=== PATIENT | female | born 1945 | race American Indian/Alaskan Native ===

== ENCOUNTER 2020-01-31 05:58 | Day surgery (SDC) | payer MEDICARE, OTHER ==
[2020-01-31] MEDS ORDERED: MIDAZOLAM 2 MG/2 ML INJ IV NR (06:00)
[2020-01-31] MEDS ORDERED: SODIUM CHLORIDE 0.9% 1000 ML 1,000 ML IV SCH (06:00)
[2020-01-31] MEDS ORDERED: propofoL 200 MG/20 ML VIAL IV ONE (07:03)
[2020-01-31] MEDS ORDERED: GLYCOPYRROLATE 0.4 MG/2 ML INJ ONE (07:04)
[2020-01-31] MEDS ORDERED: ROCURONIUM 50 MG/5 ML INJ IV ONE (07:04)
[2020-01-31] MEDS ORDERED: NEOSTIGMINE 10MG/10 ML INJ MDV ONE (07:04)
[2020-01-31] MEDS ORDERED: ONDANSETRON 4 MG/2 ML INJ ONE (07:04)
[2020-01-31] MEDS ORDERED: dexAMETHasone 20 MG/5 ML VIAL ONE (07:04)
[2020-01-31] MEDS ORDERED: LIDOCAINE PF 100 MG/5 ML (CARDIAC SYRINGE) IV ONE (07:04)
[2020-01-31] MEDS ORDERED: SUCCINYLCHOLINE CHLORIDE 200 MG/10 ML INJ MDV ONE (07:04)
[2020-01-31] MEDS ORDERED: PHENYLEPHRINE/NS 1,000 MCG/10 ML SYRINGE (OR USE) IV ONE (07:04)
[2020-01-31] MEDS ORDERED: ePHEDrine SULFATE 50 MG/1 ML INJ ONE (07:05)
[2020-01-31] MEDS ORDERED: fentaNYL 100 MCG/2 ML INJ ONE (07:06)
[2020-01-31] MEDS ORDERED: SODIUM CHLORIDE 0.9% 100 ML ONE (07:13)
[2020-01-31] MEDS ORDERED: PAPAVERINE 60 MG/2 ML INJ SDV ONE (07:16)
[2020-01-31] MEDS ORDERED: PROTAMINE SULFATE 50 MG/5 ML INJ ONE (07:16)
[2020-01-31] MEDS ORDERED: BUPIVACAINE/PF (0.5%) 5 MG/1 ML 10 ML VIAL INFILTRATI ONE ×4 (07:16→09:06)
[2020-01-31] MEDS ORDERED: LIDOCAINE (1%) 10 MG/1 ML VIAL 20 ML MDV ONE (07:16)
[2020-01-31] MEDS ORDERED: SODIUM CHLORIDE 0.9% 250ML 250 ML ONE (07:17)
[2020-01-31] MEDS ORDERED: SODIUM CHLORIDE 0.9% 500 ML 500 ML ONE (07:18)
[2020-01-31 07:31] LABS: Hematocrit 37.1 % (30.3-42.9); Mean Corpuscular HGB Conc 32 % (30-34); Mean Corpuscular Volume 85 fl (79-97); Platelet Count 246 K/mm3 (140-440); Red Blood Count 4.37 M/mm3 (3.65-5.03); Red Cell Distribution Width 15.3 % (13.2-15.2)
--- NOTE | 2020-01-31 07:31 | Anesthesia Consultation ---
Anesthesia Consult and Med Hx Date of service: 01/31/20 - Airway Anesthetic Teeth Evaluation: Good, Bridges ROM Head & Neck: Adequate Mental/Hyoid Distance: Adequate Mallampati Class: Class III Intubation Access Assessment: Possibly Difficult - Cardiac Exam Cardiac Exam: RRR - Pre-Operative Health Status ASA Pre-Surgery Classification: ASA3 Proposed Anesthetic Plan: General - Pulmonary Hx Smoking: No Hx Asthma: No Hx Respiratory Symptoms: No SOB: No COPD: No Home Oxygen Therapy: No Hx Pneumonia: No Hx Sleep Apnea: Yes (DX) - Cardiovascular System Hx Hypertension: Yes Hx Coronary Artery Disease: No Hx Heart Attack/AMI: No Hx Angina: No Hx Percutaneous Transluminal Coronary Angioplasty (PTCA): No Hx Cardia Arrhythmia: No Hx Pacemaker: No Hx Internal Defibrillator: No Hx Valvular Heart Disease: No Hx Heart Murmur: No Hx Peripheral Vascular Disease: No - Central Nervous System Hx Neuromuscular Disorder: No Hx Seizures: No Hx Back Pain: No Hx Psychiatric Problems: Yes - Gastrointestinal Hx Ulcer: No Hx Gastroesophageal Reflux Disease: Yes - Endocrine Hx Renal Disease: Yes Hx End Stage Renal Disease: Yes Hx Cirrhosis: No Hx Liver Disease: No Hx Non-Insulin Dependent Diabetes: Yes Hx Thyroid Disease: No Hx Hypothyroidism: No Hx Hyperthyroidism: No - Hematic Hx Anemia: Yes Hx Sickle Cell Disease: Yes (trait) - Other Systems Hx Alcohol Use: No Hx Substance Use: No Hx Cancer: No Hx Obesity: No
--- NOTE | 2020-01-31 07:32 | Anesthesia Day of Surgery ---
Anesthesia Day of Surgery - Day of Surgery Patient Examined: Yes Patient H&P Reviewed: Yes Patient is NPO: Yes (since 01/30/2020 @[id number]) Beta Blockers: No
[2020-01-31] MEDS ORDERED: HEPARIN 10,000 UNITS/10 ML VIAL ONE (07:43)
[2020-01-31 07:54] LABS: Calcium 9.2 mg/dL (8.4-10.2)
[2020-01-31] MEDS ORDERED: rifAMPin 600 MG VIAL ONE (08:40)
[2020-01-31] MEDS ORDERED: fentaNYL 100 MCG/2 ML INJ IV PRN (08:45)
[2020-01-31] MEDS ORDERED: HEPARIN 10,000 UNITS/10 ML VIAL IV ONE (09:04)
[2020-01-31] MEDS ORDERED: SODIUM CHLORIDE 0.9% IRR 1,500 ML BOTTLE IR ONE (09:07)
[2020-01-31] MEDS ORDERED: rifAMPin 600 MG VIAL IV ONE (09:08)
[2020-01-31] MEDS ORDERED: SODIUM CHLORIDE 0.9% 500 ML IVPB IV ONE (09:08)
[2020-01-31] MEDS ORDERED: SODIUM CHLORIDE 0.9% 250 ML IVPB IV ONE (09:09)
[2020-01-31] MEDS ORDERED: BUPIVACAINE/PF (0.5%) 5 MG/1 ML 30 ML VIAL INFILTRATI ONE ×2 (09:23→09:37)
--- NOTE | 2020-01-31 09:51 | Operative Report ---
Operative Report Operative Report: Date of procedure: 01/31/2020 Pre-operative diagnosis: Chronic Renal Insufficiency Stage V Post-operative diagnosis: Same Procedure(s): 1. Creation of Left Brachial Artery to Axillary Vein AV Graft with 6 mm Bovine Graft Artergraft Surgeon: Arturo Jasso MD Leveling Machine Operator: None Anesthesia: General Endotracheal Anesthesia EBL: Minimal Counts: Correct Complications: None Condition: Stable Findings: Successful Creation of Left Arm AV Graft with Palpable Thrill and Palpable Radial Pulse at the Completion of the Case. Specimen: None Indication: The patient is a 74-year-old female with a history of chronic renal insufficiency that has not yet on hemodialysis however it is anticipated that she will require within the next several months. She had a vein mapping that demonstrated she is not a candidate for creation of arteriovenous fistula. She is right-hand dominant and requires creation of long-term access in her left arm so she was given the risk, benefits, and alternative procedures of a a creation of an arteriovenous graft and consented to the procedure. Description of Procedure: The patient was brought to the operating room and laid in supine position. After a timeout was performed general endotracheal anesthesia was achieved and the patient's left arm was then prepped and draped in normal sterile fashion. A longitudinal incision was made on the medial aspect of the arm just proximal to the antecubital crease and carried down to the brachial artery using sharp dissection. The brachial artery was dissected out circumferentially both proximally and distally and controlled with vessel loops. A second incision was created in longitudinal fashion on the medial aspect of the arm just distal to the axillary crease and carried down to the axillary vein using sharp dissection. Axillary vein was dissected out circumferentially and controlled with a vessel loop. I then used a Ana-Wick tunneler to tunnel from the brachial artery incision to the axillary vein incision and then put an 6 mm bovine through the tunnel. I infused with heparinized saline to ensure that it was not twisted or kinked. I put the brachial artery vessel loops on tension controlling the flow and then created an arteriotomy using an 11 blade and Mcpherson scissors. I beveled the graft and created an end-to-side anastomosis using 6-0 Prolene running fashion. I clamped the graft just proximal to the anastomosis and then released the vessel loops restoring flow in the brachial artery. I pl aced quick clot in incision to achieve hemostasis. I cut the proximal end of the graft to the appropriate length and beveled the graft in preparation for a venous anastomosis. I controlled the axillary vein a Satinsky clamp and created a venotomy using an 11 blade and Mcpherson scissors. I created an end to side anastomosis using a 6-0 Prolene in running fashion. Prior to completing the anastomosis I flushed the graft to ensure there was no thrombus and then completed the anastamosis. I released all clamps allowing flow into the AV graft which had an excellent thrill. I packed the wound with quick clot to achieve hemostasis. I anesthetized both wounds with 0.5% Marcaine and then closed both wounds in 2 layers using 3-0 Vicryl in running fashion in the deep dermal layer and 4-0 Monocryl in running fashion the subcuticular layer. I dressed both wounds with Dermabond. The patient tolerated the procedure well all sponge, needle, and instrument counts were correct. The patient was taken to recovery in stable condition.
--- NOTE | 2020-01-31 09:54 | Short Stay Summary ---
Short Stay Documentation Date of service: 01/31/20 Narrative H&P: See H&P - History H&P: obtained from office - Allergies and Medications Current Medications: Allergies Penicillins Allergy (Verified 10/11/13 08:06) Hives Home Medications Medication Instructions Recorded Confirmed Last Taken Type Amlodipine Besylate 5 mg PO DAILY 10/11/13 10/11/13 10/10/13 18:00 History 5 mg Benazepril HCl 40 mg PO DAILY 10/11/13 10/11/13 10/10/13 09:00 History 40 mg Rosuvastatin Calcium [Crestor] 10 mg PO QHS 10/11/13 10/11/13 10/10/13 22:00 History 10 mg glipiZIDE [Glipizide] 5 mg PO DAILY 10/11/13 10/11/13 10/10/13 18:00 History 5 mg Cholecalciferol Vit D3 1 cap PO DAILY 01/25/20 01/25/20 Unknown History Sodium Zirconium Cyclosilicate 1 pack PO DAILY 01/25/20 01/25/20 Unknown History [Lokelma] Active Medications Fentanyl (Sublimaze) 50 mcg IV Q5MIN PRN PRN Reason: Pain , Severe (7-10) Stop: 01/31/20 23:00 Clindamycin HCl (Cleocin 900 Mg/50 Ml) 900 mg in 50 mls @ 100 mls/hr IV PREOP NR; Protocol Stop: 01/31/20 18:00 Sodium Chloride (Nacl 0.9% 1000 Ml) 1,000 mls @ 42 mls/hr IV DIRECT RUSSELL Stop: 01/31/20 23:59 Midazolam HCl (Versed) 2 mg IV PREOP NR Stop: 01/31/20 23:59 - Brief post op/procedure progress note Date of procedure: 01/31/20 Pre-op diagnosis: Chronic Renal Insufficiency Stage V Post-op diagnosis: same Procedure: Creation of Left Brachial Artery to Left Axillary Vein Arteriovenous Graft With 6 mm Bovine Artegraft Anesthesia: PRINCESS Surgeon: PHUONG ORTA Estimated blood loss: minimal Pathology: none Condition: stable - Disposition Condition at discharge: Good Short Stay Discharge Plan Activity: other (No heavy lifting with left arm for 2 weeks.) Wound: open to air, keep clean and dry, other (Okay to wash the wound with soap and water but do not soak in water for 2 weeks.) Follow up with: PHUONG ORTA MD [Staff Physician] - 14 Days Prescriptions: HYDROcodone/APAP 7.5-325 [[place]ummer 7.5/325] 1 each PO Q6HR PRN #30 tablet PRN Reason: Pain
[2020-01-31] MEDS ORDERED: SUGAMMADEX SODIUM 200 MG/2 ML VIAL IV ONE (10:10)
[2020-01-31 10:50] VITALS: BP 137/62
--- NOTE | 2020-01-31 13:17 | Post Anesthesia Evaluation ---
- Post Anesthesia Evaluation Patient Participated: Yes Airway Patent: Yes Stable Respiratory Function: Yes Nausea/Vomiting: No Temp > 96.8F: Yes Pain Manageable: Yes Adequeate Hydration: Yes Anesthesia Complications: No
== END 2020-01-31 11:40 | disposition home or self-care (01) ==
LOC: OR 05:58
PROVIDERS: ATTEND Surgery Vascular Surgery
DX: I12.0 Hypertensive chronic kidney disease with stage 5 chronic kidney disease or end stage renal disease (principal); E11.22 Type 2 diabetes mellitus with diabetic chronic kidney disease; N18.6 End stage renal disease; E78.00 Pure hypercholesterolemia, unspecified; G47.30 Sleep apnea, unspecified; K21.9 Gastro-esophageal reflux disease without esophagitis; M19.90 Unspecified osteoarthritis, unspecified site; F41.9 Anxiety disorder, unspecified; Z88.0 Allergy status to penicillin; Z98.41 Cataract extraction status, right eye; Z98.42 Cataract extraction status, left eye; Z98.51 Tubal ligation status; Z98.890 Other specified postprocedural states; Z79.899 Other long term (current) drug therapy; Z86.2 Personal history of diseases of the blood and blood-forming organs and certain disorders involving the immune mechanism
CPT/HCPCS: 36415; 36830; 80048; 82962; 85027; C1768; J0330; J1100; J1644; J2001; J2250; J2370; J2405; J2704; J2710; J3010; J3490; J7030; J7040; J7050; J2440; J2720

== ENCOUNTER 2020-02-16 14:08 | Inpatient (IN) | payer MEDICARE ==
[2020-02-16 17:05] LABS: Basophils # (Auto) 0.1 K/mm3 (0.0-0.1); Basophils % (Auto) 0.8 % (0.0-1.8); Eosinophils # (Auto) 0.3 K/mm3 (0.0-0.4); Eosinophils % (Auto) 4.9 % (0.0-4.3); Hematocrit 35.1 % (30.3-42.9); Hemoglobin 11.8 gm/dl (10.1-14.3); Lymphocytes # (Auto) 1.2 K/mm3 (1.2-5.4); Lymphocytes % (Auto) 17.7 % (13.4-35.0); Mean Corpuscular HGB Conc 34 % (30-34); Mean Corpuscular Volume 85 fl (79-97); Monocytes # (Auto) 0.7 K/mm3 (0.0-0.8); Monocytes % (Auto) 10.3 % (0.0-7.3); Platelet Count 249 K/mm3 (140-440); Red Blood Count 4.15 M/mm3 (3.65-5.03)
[2020-02-16 17:30] LABS: Alanine Aminotransferase 22 units/L (7-56); BUN/Creatinine Ratio 17; Blood Urea Nitrogen 78 mg/dL (7-17); Calcium 9.3 mg/dL (8.4-10.2); Hemolysis Index 6
[2020-02-16 18:43] LABS: Bilirubin,Urine NEG (Negative); Blood,Urine NEG (Negative); Color,Urine Yellow (Yellow); Mucus,Urine FEW /HPF; Protein,Urine <15 mg/dL mg/dL (Negative); Urobilinogen,Urine < 2.0 mg/dL (<2.0)
--- NOTE | 2020-02-16 18:46 | Emergency Department Report ---
- General Chief complaint: Medical Clearance Stated complaint: [facility] Time Seen by Provider: 02/16/20 18:21 Source: patient Mode of arrival: Wheelchair Limitations: No Limitations - History of Present Illness Initial comments: 74-year-old female the past medical history of chronic renal insufficiency with recent AV fistula placement January 30, diabetes, GERD, sickle cell trait, and arthritis presents to the hospital with complaints of "needing emergent dialysis". Patient saw her vascular surgeon Dr. Jasso today and expressed that she was feeling weak and had not urinated since yesterday a.m. He then sent her to the ER for emergent dialysis. Patient did urinate after arrival to the ED and was able to provide a urine sample. She complains of dyspnea on exertion, fatigue, chest pressure while lying supine, and worsening bilateral ankle edema. As per note provided by Dr. Jasso her AV access may be cannulated starting February 19 or . Fuel Tank Sealer And Tester: Dr. Ahumada Severity scale (0 -10): 0 - Related Data Home Medications Medication Instructions Recorded Confirmed Last Taken Benazepril HCl [Lotensin] 40 mg PO DAILY 02/16/20 02/16/20 Unknown Febuxostat [Uloric] 40 mg PO DAILY 02/16/20 02/16/20 Unknown Furosemide [Lasix TAB] 40 mg PO QDAY PRN 02/16/20 02/16/20 Unknown Rosuvastatin Calcium [Crestor] 10 mg PO DAILY 02/16/20 02/16/20 Unknown Sodium Zirconium Cyclosilicate 5 gm PO DAILY 02/16/20 02/16/20 Unknown [Lokelma] amLODIPine [Norvasc] 5 mg PO DAILY 02/16/20 02/16/20 Unknown glipiZIDE [Glucotrol] 5 mg PO QDAY 02/16/20 02/16/20 Unknown Allergies Allergy/AdvReac Type Severity Reaction Status Date / Time Penicillins Allergy Hives Verified 02/16/20 15:31 ED Review of Systems ROS: Stated complaint: [facility] Other details as noted in HPI Comment: All other systems reviewed and negative ED Past Medical Hx - Past Medical History Hx Hypertension: Yes Hx Heart Attack/AMI: No Hx Congestive Heart Failure: No Hx Diabetes: Yes Hx GERD: Yes Hx Liver Disease: No Hx Renal Disease: Yes Hx Sickle Cell Disease: Yes (trait) Hx Arthritis: Yes (JOINTS) Hx Headaches / Migraines: No Hx Seizures: No Hx Kidney Stones: No Hx Asthma: No Hx COPD: No Hx Tuberculosis: No Hx HIV: No - Surgical History Hx Pacemaker: No Hx Internal Defibrillator: No - Social History Smoking Status: Never Smoker - Medications Home Medications: Home Medications Medication Instructions Recorded Confirmed Last Taken Type Benazepril HCl [Lotensin] 40 mg PO DAILY 02/16/20 02/16/20 Unknown History Febuxostat [Uloric] 40 mg PO DAILY 02/16/20 02/16/20 Unknown History Furosemide [Lasix TAB] 40 mg PO QDAY PRN 02/16/20 02/16/20 Unknown History Rosuvastatin Calcium [Crestor] 10 mg PO DAILY 02/16/20 02/16/20 Unknown History Sodium Zirconium Cyclosilicate 5 gm PO DAILY 02/16/20 02/16/20 Unknown History [Lokelma] amLODIPine [Norvasc] 5 mg PO DAILY 02/16/20 02/16/20 Unknown History glipiZIDE [Glucotrol] 5 mg PO QDAY 02/16/20 02/16/20 Unknown History ED Physical Exam - General Limitations: No Limitations - Other Other exam information: General: No acute distress Head: Atraumatic Eyes: normal appearance ENT: Moist mucous membranes Neck: Normal appearance, no midline tenderness Chest: Clear to auscultation bilaterally. CV: Regular rate and rhythm. Left upper arm AV graft with palpable thrill Abdomen: Soft, normal bowel sounds, nontender, nondistended, no rebound or guarding Back: Normal inspection Extremity: full range of motion, mild ankle Neuro: Alert O x 3, no facial asymmetry, speech clear, no gross motor sensory deficit. Patient did use a wheelchair to come to her ED room due to generalized weakness Psych: Appropriate behavior Skin: No rash ED Course Vital Signs 02/16/20 02/16/20 02/16/20 15:34 18:41 18:42 Temperature 98.2 F Pulse Rate 77 67 Respiratory 16 14 20 Rate Blood Pressure Blood Pressure 137/58 [Left] O2 Sat by Pulse 98 99 99 Oximetry 02/16/20 02/16/20 02/16/20 18:45 18:46 19:00 Temperature Pulse Rate 67 68 65 Respiratory 20 17 12 Rate Blood Pressure 136/47 119/49 Blood Pressure 124/49 [Left] O2 Sat by Pulse 99 98 98 Oximetry - Reevaluation(s) Reevaluation #1: 02/16/20 20:00 I spoke to patient's per her request and explained plan for admission, temporary dialysis access placement, and initiation of dialysis - Consultations Consultation #1: 02/16/20 19:[address] Ahumada recommends admission for dialysis which can be done tomorrow. Patient will need vascular consult in a.m. for dialysis access placement since her recently placed AV fistula is not matured enough to be accessed. Recommends n.p.o. after midnight in hepatitis panel 02/16/20 19:[address] Varner in inform patient when he access in the morning for dialysis tomorrow ED Medical Decision Making - Lab Data Result diagrams: 02/16/20 16:51 02/16/20 16:51 Lab Results 02/16/20 02/16/20 02/16/20 Range/Units 16:51 16:51 18:27 WBC 7.0 (4.5-11.0) K/mm3 RBC 4.15 (3.65-5.03) M/mm3 Hgb 11.8 (10.1-14.3) gm/dl Hct 35.1 (30.3-42.9) % MCV 85 (79-97) fl MCH 28 (28-32) pg MCHC 34 (30-34) % RDW 15.0 (13.2-15.2) % Plt Count 249 (140-440) K/mm3 Lymph % (Auto) 17.7 (13.4-35.0) % [place] % (Auto) 10.3 H (0.0-7.3) % Eos % (Auto) 4.9 H (0.0-4.3) % Baso % (Auto) 0.8 (0.0-1.8) % Lymph # (Auto) 1.2 (1.2-5.4) K/mm3 [place] # (Auto) 0.7 (0.0-0.8) K/mm3 Eos # (Auto) 0.3 (0.0-0.4) K/mm3 Baso # (Auto) 0.1 (0.0-0.1) K/mm3 Seg Neutrophils % 66.3 (40.0-70.0) % Seg Neutrophils # 4.6 (1.8-7.7) K/mm3 Sodium 141 (137-145) mmol/L Potassium 4.6 (3.6-5.0) mmol/L Chloride 106.7 (98-107) mmol/L Carbon Dioxide 20 L (22-30) mmol/L Anion Gap 19 mmol/L BUN 78 H (7-17) mg/dL Creatinine 4.5 H (0.6-1.2) mg/dL Estimated GFR 12 ml/min BUN/Creatinine Ratio 17 % Glucose 95 (65-100) mg/dL Calcium 9.3 (8.4-10.2) mg/dL Total Bilirubin 0.60 (0.1-1.2) mg/dL AST 19 (5-40) units/L ALT 22 (7-56) units/L Alkaline Phosphatase 85 (35-129) units/L Troponin T < 0.010 (0.00-0.029) ng/mL Total Protein 7.0 (6.3-8.2) g/dL Albumin 4.0 (3.9-5) g/dL Albumin/Globulin Ratio 1.3 % Urine Color Yellow (Yellow) Urine Turbidity Clear (Clear) Urine pH 5.0 (5.0-7.0) Ur Specific [place] 1.011 (1.003-1.030) Urine Protein <15 mg/dl (Negative) mg/dL Urine Glucose (UA) Neg (Negative) mg/dL Urine Ketones Neg (Negative) mg/dL Urine Blood Neg (Negative) Urine Nitrite Neg (Negative) Urine Bilirubin Neg (Negative) Urine Urobilinogen < 2.0 (<2.0) mg/dL Ur Leukocyte Esterase Tr (Negative) Urine WBC (Auto) 2.0 (0.0-6.0) /HPF Urine RBC (Auto) 5.0 (0.0-6.0) /HPF U Epithel Cells (Auto) 2.0 (0-13.0) /HPF Urine Mucus Few /HPF - EKG Data -: EKG Interpreted by [place] EKG shows normal: sinus rhythm, ST-T waves (No STEMI) Rate: normal - Radiology Data Radiology results: report reviewed CXR: NAF - Medical Decision Making 74-year-old female presents to the hospital worsening generalized weakness and decreased urine output. Patient has worsening GFR is has renal failure compared to January 30 labs. Unfortunately her AV fistula is not mature enough to be used for dialysis. Case discussed with vascular surgeon who will place temporary dialysis access in a.m. and Dr. Ingram will arrange for dialysis during admission. Patient does not require emergent dialysis tonight since potassium is normal and no signs of pulmonary edema or hypoxia. Hospitalist to admit Critical Care Time: No Critical care attestation.: If time is entered above; I have spent that time in minutes in the direct care of this critically ill patient, excluding procedure time. ED Disposition Clinical Impression: ESRD needing dialysis, Generalized weakness Disposition: OP ADMIT IP TO THIS HOSP Is pt being admited?: Yes Condition: Stable Time of Disposition: 20:01 (Dr Hou/hosp)
--- NOTE | 2020-02-16 19:05 | XRay Report ---
CHEST 1 VIEW INDICATION: sob, weakness. COMPARISON: None. FINDINGS: Support devices: None. Heart: Normal. Lungs/Pleura: No acute pulmonary or pleural findings. IMPRESSION: 1. No acute findings. Signer Name: Neo Maddox MD Signed: 02/16/2020 7:01 PM Workstation Name: [id number]
--- NOTE | 2020-02-16 20:03 | History and Physical Report ---
History of Present Illness Chief complaint: I just feel weak History of present illness: 74 YO Female with HTN, DM, GERD, OA, ESRD pending first dialysis session, HLD, SCD Trait presents to ED for evaluation. Patient states that she has experienced weakness over the past 3 days with persistent symptoms over the same timeframe. Patient was seen and evaluated by her primary care physician and was instructed to seek further care. Patient was transported to [facility] via private vehicle for further care and evaluation. Patient seen and evaluated in the emergency department. Lab and imaging studies reviewed. Patient found to have end-stage renal disease in need of dialysis. Nephrology team consulted in ED. Vascular surgery team consulted in ED for placement of dialysis catheter. Patient placed in observation status and admitted to medical floor due to increased risk of worsening symptoms. Patient denies fever, chills, chest pain, palpitation, productive cough, skin rash, recent ill contacts, or known exposure to COVID-19. No prior admission for review. All medication listed at time of admission has been reconciled. Advanced care planning conducted in ED. Past History Past Medical History: arthritis, diabetes, ESRD, GERD, hypertension, hyperlipidemia, other (See HPI) Past Surgical History: Other (AV fistula placement) Social history: . denies: smoking, alcohol abuse, prescription drug abuse Family history: hypertension Medications and Allergies Allergies Allergy/AdvReac Type Severity Reaction Status Date / Time Penicillins Allergy Hives Verified 02/16/20 15:31 Home Medications Medication Instructions Recorded Confirmed Last Taken Type Benazepril HCl [Lotensin] 40 mg PO DAILY 02/16/20 02/16/20 Unknown History Cholecalciferol (Vitamin D3) 25 mcg PO DAILY 02/16/20 02/16/20 Unknown History [Vitamin D3] Colchicine 0.6 mg PO DAILY 02/16/20 02/16/20 Unknown History Febuxostat [Uloric] 40 mg PO DAILY 02/16/20 02/16/20 Unknown History Rosuvastatin Calcium [Crestor] 10 mg PO DAILY 02/16/20 02/16/20 Unknown History amLODIPine [Norvasc] 5 mg PO DAILY 02/16/20 02/16/20 Unknown History glipiZIDE [Glucotrol] 2.5 mg PO BID 02/16/20 02/16/20 Unknown History Review of Systems Constitutional: weakness, no weight gain, no fever, no chills Ears, nose, mouth and throat: no ear pain, no ear discharge, no tinnitis, no nose pain, no nasal congestion, no nasal discharge Breasts: no change in shape, no swelling, no mass Cardiovascular: no chest pain, no orthopnea, no palpitations, no edema, no syncope, no shortness of breath Respiratory: no cough, no hemoptysis Gastrointestinal: no abdominal pain, no nausea, no diarrhea, no change in bowel habits, no hematemesis Genitourinary Female: no pelvic pain, no flank pain, no dysuria, no urinary frequency, no urgency Rectal: no pain, no incontinence, no bleeding Musculoskeletal: no neck stiffness, no neck pain, no shooting arm pain, no arm numbness/tingling, no low back pain Integumentary: no rash, no pruritis, no sores, no wounds, no boils Neurological: no head injury, no paralysis, no weakness, no numbness, no syncope, no ataxia Psychiatric: no anxiety, no change in sleep habits, no sleep disturbances Endocrine: no cold intolerance, no excessive thirst, no polyuria, no flushing, no weight change Hematologic/Lymphatic: no easy bruising, no lymphedema Allergic/Immunologic: no allergic rhinitis, no persistent infections, no anaphylaxis Exam - Constitutional Vitals: Temp Pulse Resp BP Pulse Ox 98.2 F 65 12 119/49 98 02/16/20 15:34 02/16/20 19:00 02/16/20 19:00 02/16/20 19:00 02/16/20 19:00 General appearance: Present: mild distress - EENT Eyes: Present: PERRL ENT: hearing intact, clear oral mucosa - Neck Neck: Present: supple, normal ROM - Respiratory Respiratory effort: normal Respiratory: bilateral: CTA - Cardiovascular Heart Sounds: Present: S1 & S2. Absent: rub, click - Extremities Extremities: pulses symmetrical, No edema Peripheral Pulses: within normal limits - Abdominal General gastrointestinal: Present: soft, non-tender, non-distended, normal bowel sounds Female genitourinary: Present: normal - Integumentary Integumentary: Present: clear, warm, dry - Musculoskeletal Musculoskeletal: generalized weakness - Psychiatric Psychiatric: appropriate mood/affect, intact judgment & insight - Neurologic Neurologic: CNII-XII intact, moves all extremities HEART Score - HEART Score Troponin: Troponin T < 0.010 ng/mL (0.00-0.029) 02/16/20 16:51 Results - Labs CBC & Chem 7: 02/16/20 16:51 02/16/20 20:13 Labs: Abnormal lab results 02/16/20 02/16/20 Range/Units 16:51 16:51 [place] % (Auto) 10.3 H (0.0-7.3) % Eos % (Auto) 4.9 H (0.0-4.3) % Carbon Dioxide 20 L (22-30) mmol/L BUN 78 H (7-17) mg/dL Creatinine 4.5 H (0.6-1.2) mg/dL Assessment and Plan - Patient Problems (1) ESRD needing dialysis Current Visit: Yes Status: Acute Plan to address problem: Nephrology team consulted in ED, strict I's/O, avoid nephrotoxic agents, dialysis as per renal team, vascular surgery team consulted for dialysis catheter placement. (2) Hypertension Current Visit: Yes Status: Acute Qualifiers: Hypertension type: essential hypertension Qualified Code(s): I10 - Essential (primary) hypertension Plan to address problem: Monitor blood pressure every shift, continue medical management. (3) Diabetes Current Visit: Yes Status: Acute Plan to address problem: Consistent carbohydrate diet, sliding scale insulin, Accu-Chek, hypoglycemia protocol. (4) GERD (gastroesophageal reflux disease) Current Visit: Yes Status: Acute Qualifiers: Esophagitis presence: without esophagitis Qualified Code(s): K21.9 - Gastro-esophageal reflux disease without esophagitis Plan to address problem: PPI therapy, supportive care (5) Osteoarthritis Current Visit: Yes Status: Acute Qualifiers: Laterality: bilateral Plan to address problem: Pain control, supportive care. (6) DVT prophylaxis Current Visit: Yes Status: Acute Plan to address problem: SCD to bilateral lower extremities while in bed, patient is ambulatory. (7) Advance care planning Current Visit: Yes Status: Acute Plan to address problem: Disease education conducted, patient is full code, care plan discussed, prognosis discussed, patient knowledges understanding and agreement with care plan, +30 minutes.
[2020-02-16] MEDS ORDERED: ONDANSETRON 4 MG/2 ML INJ IV PRN (20:04)
[2020-02-16] MEDS ORDERED: ALBUTEROL 2.5 MG/3 ML NEBU IH PRN (20:04)
[2020-02-16] MEDS ORDERED: FUROSEMIDE 40 MG TAB PO PRN (20:06)
[2020-02-16 20:28] LABS: Calcium 9.5 mg/dL (8.4-10.2)
[2020-02-16 20:30] LABS: Hepatitis B Surface Antigen Non-Reactive (Negative); Hepatitis C Virus Antibody Non-Reactive (NonReactive)
[2020-02-17] MEDS ORDERED: SODIUM CHLORIDE 0.9% 100 ML IV PRN (08:49)
--- NOTE | 2020-02-17 09:15 | Event Note ---
Date: 02/17/20 Patient was seen and evaluated in my office yesterday. Her incisions are well healed and the graft has a palpable thrill. She was cleared to have the graft accessed yesterday.
[2020-02-17] MEDS ORDERED: SODIUM ZIRCONIUM CYCLOSILICATE PO SCH (10:00)
[2020-02-17] MEDS ORDERED: FEBUXOSTAT 40 MG PO SCH (10:00)
--- NOTE | 2020-02-17 11:55 | Progress Note ---
Assessment and Plan - Patient Problems (1) ESRD needing dialysis Current Visit: Yes Status: Acute Plan to address problem: Nephrology team consulted in ED, strict I's/O, avoid nephrotoxic agents, dialysis as per renal team, vascular surgery team consulted for dialysis catheter placement. (2) Hypertension Current Visit: Yes Status: Chronic Qualifiers: Hypertension type: essential hypertension Qualified Code(s): I10 - Essent ial (primary) hypertension Plan to address problem: Monitor blood pressure every shift, continue medical management. (3) Diabetes Current Visit: Yes Status: Chronic Plan to address problem: Consistent carbohydrate diet, sliding scale insulin, Accu-Chek, hypoglycemia protocol. (4) GERD (gastroesophageal reflux disease) Current Visit: Yes Status: Acute Qualifiers: Esophagitis presence: without esophagitis Qualified Code(s): K21.9 - Gastro-esophageal reflux disease without esophagitis Plan to address problem: PPI therapy, supportive care (5) Osteoarthritis Current Visit: Yes Status: Acute Qualifiers: Laterality: bilateral Plan to address problem: Pain control, supportive care. (6) DVT prophylaxis Current Visit: Yes Status: Acute Plan to address problem: SCD to bilateral lower extremities while in bed, patient is ambulatory. (7) Advance care planning Current Visit: Yes Status: Acute Plan to address problem: Disease education conducted, patient is full code, care plan discussed, prognosis discussed, patient knowledges understanding and agreement with care plan, +30 minutes. History Interval history: 74 YO Female HD #2 with ESRD pending initial dialysis session, HTN, DM, GERD, OA, will likely require serial dialysis sessions. Patient resting comfortably in bed. Patient knowledges continuing to feel weak. No reported nursing events. Patient denies pain. Hospitalist Physical - Constitutional Vitals: Temp Pulse Resp BP Pulse Ox 98.2 F 63 16 129/54 99 02/17/20 04:20 02/17/20 04:20 02/17/20 04:20 02/17/20 04:20 02/17/20 04:20 General appearance: Present: mild distress - EENT Eyes: Present: PERRL, EOM intact ENT: hearing intact - Neck Neck: Present: normal ROM - Respiratory Respiratory: bilateral: CTA - Cardiovascular Rhythm: regular Heart Sounds: Present: S1 & S2 - Extremities Extremities: no ischemia Peripheral Pulses: within normal limits - Abdominal General gastrointestinal: soft, non-tender, non-distended - Integumentary Integumentary: Present: clear, dry - Psychiatric Psychiatric: cooperative - Neurologic Neurologic: CNII-XII intact HEART Score - HEART Score Troponin: Troponin T < 0.010 ng/mL (0.00-0.029) 02/16/20 16:51 Results - Labs CBC & Chem 7: 02/16/20 16:51 02/16/20 20:13 Labs: Laboratory Last Values WBC 7.0 K/mm3 (4.5-11.0) 02/16/20 16:51 RBC 4.15 M/mm3 (3.65-5.03) 02/16/20 16:51 Hgb 11.8 gm/dl (10.1-14.3) 02/16/20 16:51 Hct 35.1 % (30.3-42.9) 02/16/20 16:51 MCV 85 fl (79-97) 02/16/20 16:51 MCH 28 pg (28-32) 02/16/20 16:51 MCHC 34 % (30-34) 02/16/20 16:51 RDW 15.0 % (13.2-15.2) 02/16/20 16:51 Plt Count 249 K/mm3 (140-440) 02/16/20 16:51 Lymph % (Auto) 17.7 % (13.4-35.0) 02/16/20 16:51 [place] % (Auto) 10.3 % (0.0-7.3) H 02/16/20 16:51 Eos % (Auto) 4.9 % (0.0-4.3) H 02/16/20 16:51 Baso % (Auto) 0.8 % (0.0-1.8) 02/16/20 16:51 Lymph # (Auto) 1.2 K/mm3 (1.2-5.4) 02/16/20 16:51 [place] # (Auto) 0.7 K/mm3 (0.0-0.8) 02/16/20 16:51 Eos # (Auto) 0.3 K/mm3 (0.0-0.4) 02/16/20 16:51 Baso # (Auto) 0.1 K/mm3 (0.0-0.1) 02/16/20 16:51 Seg Neutrophils % 66.3 % (40.0-70.0) 02/16/20 16:51 Seg Neutrophils # 4.6 K/mm3 (1.8-7.7) 02/16/20 16:51 Sodium 143 mmol/L (137-145) 02/16/20 20:13 Potassium 4.9 mmol/L (3.6-5.0) 02/16/20 20:13 Chloride 106.0 mmol/L (98-107) 02/16/20 20:13 Carbon Dioxide 23 mmol/L (22-30) 02/16/20 20:13 Anion Gap 19 mmol/L 02/16/20 20:13 BUN 79 mg/dL (7-17) H 02/16/20 20:13 Creatinine 4.5 mg/dL (0.6-1.2) H 02/16/20 20:13 Estimated GFR 12 ml/min 02/16/20 20:13 BUN/Creatinine Ratio 18 % 02/16/20 20:13 Glucose 94 mg/dL (65-100) 02/16/20 20:13 POC Glucose 90 mg/dL (70-105) 02/17/20 08:04 Calcium 9.5 mg/dL (8.4-10.2) 02/16/20 20:13 Total Bilirubin 0.60 mg/dL (0.1-1.2) 02/16/20 16:51 AST 19 units/L (5-40) 02/16/20 16:51 ALT 22 units/L (7-56) 02/16/20 16:51 Alkaline Phosphatase 85 units/L (35-129) 02/16/20 16:51 Troponin T < 0.010 ng/mL (0.00-0.029) 02/16/20 16:51 Total Protein 7.0 g/dL (6.3-8.2) 02/16/20 16:51 Albumin 4.0 g/dL (3.9-5) 02/16/20 16:51 Albumin/Globulin Ratio 1.3 % 02/16/20 16:51 Urine Color Yellow (Yellow) 02/16/20 18:27 Urine Turbidity Clear (Clear) 02/16/20 18:27 Urine pH 5.0 (5.0-7.0) 02/16/20 18:27 Ur Specific [place] 1.011 (1.003-1.030) 02/16/20 18: Urine Protein <15 mg/dl mg/dL (Negative) 02/16/20 18: Urine Glucose (UA) Neg mg/dL (Negative) 02/16/20 18: Urine Ketones Neg mg/dL (Negative) 02/16/20 18: Urine Blood Neg (Negative) 02/16/20 18: Urine Nitrite Neg (Negative) 02/16/20 18: Urine Bilirubin Neg (Negative) 02/16/20 18: Urine Urobilinogen < 2.0 mg/dL (<2.0) 02/16/20 18: Ur Leukocyte Esterase Tr (Negative) 02/16/20 18: Urine WBC (Auto) 2.0 /HPF (0.0-6.0) 02/16/20 18: Urine RBC (Auto) 5.0 /HPF (0.0-6.0) 02/16/20 18: U Epithel Cells (Auto) 2.0 /HPF (0-13.0) 02/16/20 18: Urine Mucus Few /HPF 02/16/20 18:27 Hepatitis A IgM Ab Non-reactive (NonReactive) 02/16/20 19:45 Hep Bs Antigen Non-reactive (Negative) 02/16/20 19:45 Hep B Core IgM Ab Non-reactive (NonReactive) 02/16/20 19:45 Hepatitis C Antibody Non-reactive (NonReactive) 02/16/20 19:45 Childress/IV: Voiding Method Toilet IV Catheter Type [Right Hand] Peripheral IV Active Medications - Current Medications Current Medications: Generic Name Dose Route Start Last Admin Trade Name Freq PRN Reason Stop Dose Admin Acetaminophen 650 mg 02/16/20 20:04 Acetaminophen 325 Mg Tab PO Q4H PRN Pain MILD(1-3)/Fever >100.5/LESLIE Albuterol 2.5 mg 02/16/20 20:04 Albuterol 2.5 Mg/3 Ml Nebu IH Q4HRT PRN Shortness Of Breath Amlodipine Besylate 5 mg 02/17/20 10:00 Amlodipine 5 Mg Tab PO DAILY RUSSELL Atorvastatin Calcium 20 mg 02/16/20 22:00 02/16/20 22:15 Atorvastatin 20 Mg Tab PO 20 mg QHS RUSSELL Administration Furosemide 40 mg 12/10/20 20:06 Furosemide 40 Mg Tab PO QDAY PRN Edema Sodium Chloride 100 mls @ 999 mls/hr 02/17/20 08:49 Nacl 0.9% IV DERRELL PRN Hypotension Lisinopril 40 mg 02/17/20 10:00 Lisinopril 40 Mg Tab PO DAILY RUSSELL Miscellaneous Medication 40 mg 02/17/20 10:00 Febuxostat [Uloric] PO DAILY [facility] Miscellaneous Medication 5 gm 02/17/20 10:00 Sodium Zirconium Cyclosilicate [Lokelma] PO DAILY RUSSELL Ondansetron HCl 4 mg 02/16/20 20:04 Ondansetron 4 Mg/2 Ml Inj IV Q8H PRN Nausea And Vomiting Sodium Chloride 10 ml 02/16/20 22:00 02/16/20 22:15 Sodium Chloride 0.9% 10 Ml Flush Syringe IV 10 ml BID RUSSELL Administration Sodium Chloride 10 ml 02/16/20 20:04 Sodium Chloride 0.9% 10 Ml Flush Syringe IV PRN PRN LINE FLUSH
--- NOTE | 2020-02-17 12:13 | Consultation ---
History of Present Illness - Reason for Consult chronic renal failure - History of Present Illness very pleasant 74-year-old -[place] female, who is well known to our outpatient facility as she is seen by my colleague , for management of chronic kidney disease stage IV in the setting of diabetes and hypertension. Patient has had progressively worsening renal failure and secondary to concerns for possible uremic symptoms such as weakness and fatigue, she was advised to come to the emergency room department and to initiate hemodialysis. She had a new AV graft placed by vascular surgery. There is a note this morning from vascular surgery clearing us to cannulate the graft today for her first dialysis session. Past History Past Medical History: arthritis, diabetes, ESRD, GERD, hypertension, hyperlipidemia, other (See HPI) Past Surgical History: Other (AV fistula placement) Social history: . denies: smoking, alcohol abuse, prescription drug abuse Family history: hypertension Medications and Allergies Allergies Allergy/AdvReac Type Severity Reaction Status Date / Time Penicillins Allergy Hives Verified 02/16/20 15:31 Home Medications Medication Instructions Recorded Confirmed Last Taken Type Benazepril HCl [Lotensin] 40 mg PO DAILY 02/16/20 02/16/20 Unknown History Cholecalciferol (Vitamin D3) 25 mcg PO DAILY 02/16/20 02/16/20 Unknown History [Vitamin D3] Colchicine 0.6 mg PO DAILY 02/16/20 02/16/20 Unknown History Febuxostat [Uloric] 40 mg PO DAILY 02/16/20 02/16/20 Unknown History Rosuvastatin Calcium [Crestor] 10 mg PO DAILY 02/16/20 02/16/20 Unknown History amLODIPine [Norvasc] 5 mg PO DAILY 02/16/20 02/16/20 Unknown History glipiZIDE [Glucotrol] 2.5 mg PO BID 02/16/20 02/16/20 Unknown History Active Meds: Active Medications Acetaminophen (Acetaminophen 325 Mg Tab) 650 mg PO Q4H PRN PRN Reason: Pain MILD(1-3)/Fever >100.5/LESLIE Albuterol (Albuterol 2.5 Mg/3 Ml Nebu) 2.5 mg IH Q4HRT PRN PRN Reason: Shortness Of Breath Amlodipine Besylate (Amlodipine 5 Mg Tab) 5 mg PO DAILY RUSSELL Atorvastatin Calcium (Atorvastatin 20 Mg Tab) 20 mg PO QHS RUSSELL Last Admin: 02/16/20 22:15 Dose: 20 mg Documented by: Furosemide (Furosemide 40 Mg Tab) 40 mg PO QDAY PRN PRN Reason: Edema Sodium Chloride (Nacl 0.9%) 100 mls @ 999 mls/hr IV DERRELL PRN PRN Reason: Hypotension Lisinopril (Lisinopril 40 Mg Tab) 40 mg PO DAILY RUSSELL Miscellaneous Medication (Febuxostat [Uloric]) 40 mg PO DAILY [facility] Miscellaneous Medication (Sodium Zirconium Cyclosilicate [Lokelma]) 5 gm PO DAILY [facility] Ondansetron HCl (Ondansetron 4 Mg/2 Ml Inj) 4 mg IV Q8H PRN PRN Reason: Nausea And Vomiting Sodium Chloride (Sodium Chloride 0.9% 10 Ml Flush Syringe) 10 ml IV BID [facility] Last Admin: 02/16/20 22:15 Dose: 10 ml Documented by: Sodium Chloride (Sodium Chloride 0.9% 10 Ml Flush Syringe) 10 ml IV PRN PRN PRN Reason: LINE FLUSH Review of Systems All systems: negative Constitutional: fatigue, weakness Exam - Vital Signs Vital signs: Vital Signs Temp Pulse Resp BP Pulse Ox 98.2 F 77 16 137/58 98 02/16/20 15:34 02/16/20 15:34 02/16/20 15:34 02/16/20 15:34 02/16/20 15:34 - General Appearance General appearance: well-developed, well-nourished, appears stated age EENT: ATNC, PERRL Neck: Present: neck supple, trachea midline Respiratory: Clear to Ascultation Heart: regular, S1S2 Gastrointestinal: Present: normal Integumentary: no rash Neurologic: no focal deficit, no asterixis Musculoskeletal: Present: deferred Psychiatric: cooperative Results - Lab Results 02/16/20 16:51 02/16/20 20:13 Most recent lab results Calcium 9.5 mg/dL (8.4-10.2) 02/16/20 20:13 Assessment and Plan - Patient Problems (1) CKD (chronic kidney disease) stage V requiring chronic dialysis Current Visit: Yes Status: Chronic Plan to address problem: given her progressive renal failure along with concerns of uremia, will initiate patient on hemodialysis inpatient at this time. Ears have been placed for 2 consecutive dialysis treatments. I was notified by the nursing staff and there is also a note in the chart indicating that per vascular recommendations we can cannulate the graft today. I have adjusted the blood flow rightto 250 ml/min and to ensure that we use 17-gauge needles when cannulating. (2) Generalized weakness Current Visit: Yes Status: Chronic Plan to address problem: likely as a consequence of uremia. As such we will initiate hemodialysis today. Case management to help with outpatient placement. Patient is being worked up for placement at [facility]. (3) Hypertension Current Visit: Yes Status: Chronic Qualifiers: Hypertension type: essential hypertension Qualified Code(s): I10 - Essential (primary) hypertension Plan to address problem: monitor blood pressure on the current regimen. (4) Diabetes Current Visit: Yes Status: Chronic Plan to address problem: diabetes management per primary attending.
[2020-02-17] MEDS: LISINOPRIL 40 MG TAB PO SCH (17:33)
[2020-02-17] MEDS: amLODIPine 5 MG TAB PO SCH (17:34)
[2020-02-17] MEDS: ACETAMINOPHEN 325 MG TAB PO PRN (22:46)
[2020-02-17] MEDS ORDERED: ALPRAZolam 0.25 MG TAB PO ONE (23:15)
[2020-02-18] MEDS: LISINOPRIL 40 MG TAB PO SCH (09:56)
--- NOTE | 2020-02-18 10:38 | Progress Note ---
Assessment and Plan - Patient Problems (1) ESRD needing dialysis Current Visit: Yes Status: Acute Plan to address problem: given her progressive renal failure along with concerns of uremia, patient was initiated on hemodialysis inpatient at this time. second HD arranged for today. use 17-gauge needles when cannulating. (2) Generalized weakness Current Visit: Yes Status: Chronic Plan to address problem: likely 2/2 uremia, pt initiated on HD. Case management to help with outpatient placement. Patient is being worked up for placement at [facility]. (3) Hypertension Current Visit: Yes Status: Chronic Qualifiers: Hypertension type: essential hypertension Qualified Code(s): I10 - Essential (primary) hypertension Plan to address problem: monitor blood pressure on the current regimen. (4) Diabetes Current Visit: Yes Status: Chronic Qualifiers: Chronic kidney disease stage: on chronic dialysis Plan to address problem: diabetes management per primary attending. Subjective Date of service: 02/18/20 Principal diagnosis: ESRD Interval history: pt awake, alert, in no acute distress, tolerated HD well yesterday. Second HD scheduled today. Objective - Vital Signs Vital signs: Vital Signs - 12hr 02/18/20 02/18/20 02/18/20 03:48 07:59 09:56 Temperature 97.9 F Pulse Rate 65 Respiratory 16 Rate Blood Pressure 122/54 126/56 O2 Sat by Pulse 100 92 Oximetry - General Appearance General appearance: well-developed, well-nourished, appears stated age EENT: ATNC, PERRL, mucous membranes moist Neck: no JVD Respiratory: Present: Clear to Ascultation Cardiology: regular, S1S2 Gastrointestinal: normoactive bowel sounds Integumentary: no rash Neurologic: no focal deficit, alert and oriented x3, strength 5/5, CN 3-12 intact Psychiatric: mood/affect appropriate, cooperative - Lab 02/16/20 16:51 02/16/20 20:13 Most recent lab results Calcium 9.5 mg/dL (8.4-10.2) 02/16/20 20:13 Medications & Allergies - Medications Allergies/Adverse Reactions: Allergies Penicillins Allergy (Verified 02/16/20 15:31) Hives Home Medications: Home Medications Medication Instructions Recorded Confirmed Last Taken Type Benazepril HCl [Lotensin] 40 mg PO DAILY 02/16/20 02/16/20 Unknown History Cholecalciferol (Vitamin D3) 25 mcg PO DAILY 02/16/20 02/16/20 Unknown History [Vitamin D3] Colchicine 0.6 mg PO DAILY 02/16/20 02/16/20 Unknown History Febuxostat [Uloric] 40 mg PO DAILY 02/16/20 02/16/20 Unknown History Rosuvastatin Calcium [Crestor] 10 mg PO DAILY 02/16/20 02/16/20 Unknown History amLODIPine [Norvasc] 5 mg PO DAILY 02/16/20 02/16/20 Unknown History glipiZIDE [Glucotrol] 2.5 mg PO BID 02/16/20 02/16/20 Unknown History Active Medications: Generic Name Dose Route Start Last Admin Trade Name Freq PRN Reason Stop Dose Admin Acetaminophen 650 mg 02/16/20 20:04 Acetaminophen 325 Mg Tab PO Q4H PRN Pain MILD(1-3)/Fever >100.5/LESLIE Albuterol 2.5 mg 02/16/20 20:04 Albuterol 2.5 Mg/3 Ml Nebu IH Q4HRT PRN Shortness Of Breath Amlodipine Besylate 5 mg 02/17/20 10:00 02/17/20 17:34 Amlodipine 5 Mg Tab PO 5 mg DAILY RUSSELL Administration Atorvastatin Calcium 20 mg 02/16/20 22:00 02/17/20 22:47 Atorvastatin 20 Mg Tab PO 20 mg QHS RUSSELL Administration Furosemide 40 mg 02/16/20 20:06 Furosemide 40 Mg Tab PO QDAY PRN Edema Sodium Chloride 100 mls @ 999 mls/hr 02/17/20 08:49 Nacl 0.9% IV DERRELL PRN Hypotension Lisinopril 40 mg 02/17/20 10:00 02/18/20 09:56 Lisinopril 40 Mg Tab PO 40 mg DAILY RUSSELL Administration Miscellaneous Medication 40 mg 02/17/20 10:00 Febuxostat [Uloric] PO DAILY RUSSELL Miscellaneous Medication 5 gm 02/17/20 10:00 Sodium Zirconium Cyclosilicate [Lokelma] PO DAILY RUSSELL Ondansetron HCl 4 mg 02/16/20 20:04 Ondansetron 4 Mg/2 Ml Inj IV Q8H PRN Nausea And Vomiting Sodium Chloride 10 ml 02/16/20 22:00 02/18/20 09:57 Sodium Chloride 0.9% 10 Ml Flush Syringe IV 10 ml BID RUSSELL Administration Sodium Chloride 10 ml 02/16/20 20:04 Sodium Chloride 0.9% 10 Ml Flush Syringe IV PRN PRN LINE FLUSH
--- NOTE | 2020-02-18 20:28 | Progress Note ---
Assessment and Plan - Patient Problems (1) ESRD needing dialysis Current Visit: Yes Status: Acute Plan to address problem: Nephrology team consulted in ED, strict I's/O, avoid nephrotoxic agents, dialysis as per renal team, vascular surgery team consulted for dialysis catheter placement. (2) Hypertension Current Visit: Yes Status: Chronic Qualifiers: Hypertension type: essential hypertension Qualified Code(s): I10 - Essent ial (primary) hypertension Plan to address problem: Monitor blood pressure every shift, continue medical management. (3) Diabetes Current Visit: Yes Status: Chronic Qualifiers: Chronic kidney disease stage: on chronic dialysis Plan to address problem: Consistent carbohydrate diet, sliding scale insulin, Accu-Chek, hypoglycemia protocol. (4) GERD (gastroesophageal reflux disease) Current Visit: Yes Status: Acute Qualifiers: Esophagitis presence: without esophagitis Qualified Code(s): K21.9 - Gastro-esophageal reflux disease without esophagitis Plan to address problem: PPI therapy, supportive care (5) Osteoarthritis Current Visit: Yes Status: Acute Qualifiers: Laterality: bilateral Plan to address problem: Pain control, supportive care. (6) DVT prophylaxis Current Visit: Yes Status: Acute Plan to address problem: SCD to bilateral lower extremities while in bed, patient is ambulatory. (7) Advance care planning Current Visit: Yes Status: Acute Plan to address problem: Disease education conducted, patient is full code, care plan discussed, prognosis discussed, patient knowledges understanding and agreement with care plan, +30 minutes. History Interval history: 74 YO Female HD #3 with ESRD requiring serial dialysis, HTN, DM, GERD, OA, will likely require serial dialysis sessions. Patient resting comfortably in bed. Patient acknowledges continuing to feel weak. No reported nursing events. Patient denies pain. Case management consulted for discharge planning and assistance with outpatient dialysis. Hospitalist Physical - Constitutional Vitals: Temp Pulse Resp BP Pulse Ox 98.0 F 64 18 128/64 100 02/18/20 17:30 02/18/20 17:30 02/18/20 17:30 02/18/20 17:30 02/18/20 11:03 General appearance: Present: mild distress - EENT Eyes: Present: PERRL, EOM intact ENT: hearing decreased - Neck Neck: Present: supple - Respiratory Respiratory: bilateral: CTA - Cardiovascular Rhythm: regular Heart Sounds: Present: S1 & S2 - Extremities Extremities: no ischemia Peripheral Pulses: within normal limits - Abdominal General gastrointestinal: soft, non-tender, non-distended - Integumentary Integumentary: Present: clear, dry - Psychiatric Psychiatric: cooperative - Neurologic Neurologic: CNII-XII intact HEART Score - HEART Score Troponin: Troponin T < 0.010 ng/mL (0.00-0.029) 02/16/20 16:51 Results - Labs CBC & Chem 7: 02/16/20 16:51 02/16/20 20:13 Labs: Laboratory Last Values WBC 7.0 K/mm3 (4.5-11.0) 02/16/20 16:51 RBC 4.15 M/mm3 (3.65-5.03) 02/16/20 16:51 Hgb 11.8 gm/dl (10.1-14.3) 02/16/20 16:51 Hct 35.1 % (30.3-42.9) 02/16/20 16:51 MCV 85 fl (79-97) 02/16/20 16:51 MCH 28 pg (28-32) 02/16/20 16:51 MCHC 34 % (30-34) 02/16/20 16:51 RDW 15.0 % (13.2-15.2) 02/16/20 16:51 Plt Count 249 K/mm3 (140-440) 02/16/20 16:51 Lymph % (Auto) 17.7 % (13.4-35.0) 02/16/20 16:51 [place] % (Auto) 10.3 % (0.0-7.3) H 02/16/20 16:51 Eos % (Auto) 4.9 % (0.0-4.3) H 02/16/20 16:51 Baso % (Auto) 0.8 % (0.0-1.8) 02/16/20 16:51 Lymph # (Auto) 1.2 K/mm3 (1.2-5.4) 02/16/20 16:51 [place] # (Auto) 0.7 K/mm3 (0.0-0.8) 02/16/20 16:51 Eos # (Auto) 0.3 K/mm3 (0.0-0.4) 02/16/20 16:51 Baso # (Auto) 0.1 K/mm3 (0.0-0.1) 02/16/20 16:51 Seg Neutrophils % 66.3 % (40.0-70.0) 02/16/20 16:51 Seg Neutrophils # 4.6 K/mm3 (1.8-7.7) 02/16/20 16:51 Sodium 143 mmol/L (137-145) 02/16/20 20:13 Potassium 4.9 mmol/L (3.6-5.0) 02/16/20 20:13 Chloride 106.0 mmol/L (98-107) 02/16/20 20:13 Carbon Dioxide 23 mmol/L (22-30) 02/16/20 20:13 Anion Gap 19 mmol/L 02/16/20 20:13 BUN 79 mg/dL (7-17) H 02/16/20 20:13 Creatinine 4.5 mg/dL (0.6-1.2) H 02/16/20 20:13 Estimated GFR 12 ml/min 02/16/20 20:13 BUN/Creatinine Ratio 18 % 02/16/20 20:13 Glucose 94 mg/dL (65-100) 02/16/20 20:13 POC Glucose 90 mg/dL (70-105) 02/17/20 08:04 Calcium 9.5 mg/dL (8.4-10.2) 02/16/20 20:13 Total Bilirubin 0.60 mg/dL (0.1-1.2) 02/16/20 16:51 AST 19 units/L (5-40) 02/16/20 16:51 ALT 22 units/L (7-56) 02/16/20 16:51 Alkaline Phosphatase 85 units/L (35-129) 02/16/20 16:51 Troponin T < 0.010 ng/mL (0.00-0.029) 02/16/20 16:51 Total Protein 7.0 g/dL (6.3-8.2) 02/16/20 16:51 Albumin 4.0 g/dL (3.9-5) 02/16/20 16:51 Albumin/Globulin Ratio 1.3 % 02/16/20 16:51 Urine Color Yellow (Yellow) 02/16/20 18:27 Urine Turbidity Clear (Clear) 02/16/20 18:27 Urine pH 5.0 (5.0-7.0) 02/16/20 18: Ur Specific [place] 1.011 (1.003-1.030) 02/16/20 18: Urine Protein <15 mg/dl mg/dL (Negative) 02/16/20 18: Urine Glucose (UA) Neg mg/dL (Negative) 02/16/20 18: Urine Ketones Neg mg/dL (Negative) 02/16/20 18: Urine Blood Neg (Negative) 02/16/20 18: Urine Nitrite Neg (Negative) 02/16/20 18: Urine Bilirubin Neg (Negative) 02/16/20 18: Urine Urobilinogen < 2.0 mg/dL (<2.0) 02/16/20 18: Ur Leukocyte Esterase Tr (Negative) 02/16/20 18: Urine WBC (Auto) 2.0 /HPF (0.0-6.0) 02/16/20 18: Urine RBC (Auto) 5.0 /HPF (0.0-6.0) 02/16/20 18: U Epithel Cells (Auto) 2.0 /HPF (0-13.0) 02/16/20 18: Urine Mucus Few /HPF 02/16/20 18:27 Hepatitis A IgM Ab Non-reactive (NonReactive) 02/16/20 19:45 Hep Bs Antigen Non-reactive (Negative) 02/16/20 19:45 Hep B Core IgM Ab Non-reactive (NonReactive) 02/16/20 19:45 Hepatitis C Antibody Non-reactive (NonReactive) 02/16/20 19:45 Childress/IV: Voiding Method Toilet IV Catheter Type [Right Hand] Peripheral IV Active Medications - Current Medications Current Medications: Generic Name Dose Route Start Last Admin Trade Name Freq PRN Reason Stop Dose Admin Acetaminophen 650 mg 02/16/20 20:04 Acetaminophen 325 Mg Tab PO Q4H PRN Pain MILD(1-3)/Fever >100.5/LESLIE Albuterol 2.5 mg 02/16/20 20:04 Albuterol 2.5 Mg/3 Ml Nebu IH Q4HRT PRN Shortness Of Breath Amlodipine Besylate 5 mg 02/17/20 10:00 02/17/20 17:34 Amlodipine 5 Mg Tab PO 5 mg DAILY RUSSELL Administration Atorvastatin Calcium 20 mg 12/10/20 22:00 02/17/20 22:47 Atorvastatin 20 Mg Tab PO 20 mg QHS RUSSELL Administration Furosemide 40 mg 02/16/20 20:06 Furosemide 40 Mg Tab PO QDAY PRN Edema Sodium Chloride 100 mls @ 999 mls/hr 02/17/20 08:49 Nacl 0.9% IV DERRELL PRN Hypotension Lisinopril 40 mg 02/17/20 10:00 02/18/20 09:56 Lisinopril 40 Mg Tab PO 40 mg DAILY RUSSELL Administration Miscellaneous Medication 40 mg 02/17/20 10:00 Febuxostat [Uloric] PO DAILY [facility] Miscellaneous Medication 5 gm 02/17/20 10:00 Sodium Zirconium Cyclosilicate [Lokelma] PO DAILY RUSSELL Ondansetron HCl 4 mg 02/16/20 20:04 Ondansetron 4 Mg/2 Ml Inj IV Q8H PRN Nausea And Vomiting Sodium Chloride 10 ml 02/16/20 22:00 02/18/20 09:57 Sodium Chloride 0.9% 10 Ml Flush Syringe IV 10 ml BID RUSSELL Administration Sodium Chloride 10 ml 02/16/20 20:04 Sodium Chloride 0.9% 10 Ml Flush Syringe IV PRN PRN LINE FLUSH
[2020-02-19] MEDS: amLODIPine 5 MG TAB PO SCH ×2 (10:02)
[2020-02-19] MEDS: LISINOPRIL 40 MG TAB PO SCH (10:03)
--- NOTE | 2020-02-19 10:17 | Progress Note ---
Assessment and Plan - Patient Problems (1) ESRD needing dialysis Current Visit: Yes Status: Acute Plan to address problem: given her progressive renal failure along with concerns of uremia, patient was initiated on hemodialysis. S/p daily HD until yesterday, cont HD on TTS schedule. use 17-gauge needles when cannulating. (2) Generalized weakness Current Visit: Yes Status: Chronic Plan to address problem: improved with HD. Case management to help with outpatient placement. Patient is being worked up for placement at [facility]. (3) Hypertension Current Visit: Yes Status: Chronic Qualifiers: Hypertension type: essential hypertension Qualified Code(s): I10 - Essential (primary) hypertension Plan to address problem: monitor blood pressure on the current regimen. (4) Diabetes Current Visit: Yes Status: Chronic Qualifiers: Chronic kidney disease stage: on chronic dialysis Plan to address problem: diabetes management per primary attending. Subjective Date of service: 02/19/20 Principal diagnosis: ESRD Interval history: pt awake, alert, in no acute distress, tolerated second HD well yesterday without complications. no over night events Objective - Vital Signs Vital signs: Vital Signs - 12hr 02/19/20 02/19/20 02/19/20 00:22 05:49 08:59 Temperature 97.1 F L 98.0 F Pulse Rate 70 64 Respiratory 16 16 Rate Blood Pressure 121/53 124/56 O2 Sat by Pulse 98 99 98 Oximetry - General Appearance General appearance: well-developed, well-nourished, appears stated age EENT: ATNC, PERRL, mucous membranes moist Neck: no JVD Respiratory: Present: Clear to Ascultation Cardiology: regular, S1S2 Gastrointestinal: normoactive bowel sounds Integumentary: no rash, other (no edema ) Neurologic: no focal deficit, alert and oriented x3, strength 5/5, CN 3-12 intact Psychiatric: mood/affect appropriate, cooperative - Lab 02/16/20 16:51 02/16/20 20:13 Most recent lab results Calcium 9.5 mg/dL (8.4-10.2) 02/16/20 20:13 Medications & Allergies - Medications Allergies/Adverse Reactions: Allergies Penicillins Allergy (Verified 02/16/20 15:31) Hives Home Medications: Home Medications Medication Instructions Recorded Confirmed Last Taken Type Benazepril HCl [Lotensin] 40 mg PO DAILY 02/16/20 02/16/20 Unknown History Cholecalciferol (Vitamin D3) 25 mcg PO DAILY 02/16/20 02/16/20 Unknown History [Vitamin D3] Colchicine 0.6 mg PO DAILY 02/16/20 02/16/20 Unknown History Febuxostat [Uloric] 40 mg PO DAILY 02/16/20 02/16/20 Unknown History Rosuvastatin Calcium [Crestor] 10 mg PO DAILY 02/16/20 02/16/20 Unknown History amLODIPine [Norvasc] 5 mg PO DAILY 02/16/20 02/16/20 Unknown History glipiZIDE [Glucotrol] 2.5 mg PO BID 02/16/20 02/16/20 Unknown History Active Medications: Generic Name Dose Route Start Last Admin Trade Name Freq PRN Reason Stop Dose Admin Acetaminophen 650 mg 02/16/20 20:04 Acetaminophen 325 Mg Tab PO Q4H PRN Pain MILD(1-3)/Fever >100.5/ELSLIE Albuterol 2.5 mg 02/16/20 20:04 Albuterol 2.5 Mg/3 Ml Nebu IH Q4HRT PRN Shortness Of Breath Amlodipine Besylate 5 mg 02/17/20 10:00 02/19/20 10:02 Amlodipine 5 Mg Tab PO 5 mg DAILY RUSSELL Administration Atorvastatin Calcium 20 mg 02/16/20 22:00 02/18/20 21:54 Atorvastatin 20 Mg Tab PO 20 mg QHS RUSSELL Administration Furosemide 40 mg 02/16/20 20:06 Furosemide 40 Mg Tab PO QDAY PRN Edema Sodium Chloride 100 mls @ 999 mls/hr 02/17/20 08:49 Nacl 0.9% IV DERRELL PRN Hypotension Lisinopril 40 mg 02/17/20 10:00 02/19/20 10:03 Lisinopril 40 Mg Tab PO 40 mg DAILY RUSSELL Administration Miscellaneous Medication 40 mg 02/17/20 10:00 Febuxostat [Uloric] PO DAILY RUSSELL Miscellaneous Medication 5 gm 02/17/20 10:00 Sodium Zirconium Cyclosilicate [Lokelma] PO DAILY RUSSELL Ondansetron HCl 4 mg 02/16/20 20:04 02/19/20 04:10 Ondansetron 4 Mg/2 Ml Inj IV 4 mg Q8H PRN Administration Nausea And Vomiting Sodium Chloride 10 ml 02/16/20 22:00 02/19/20 10:04 Sodium Chloride 0.9% 10 Ml Flush Syringe IV 10 ml BID RUSSELL Administration Sodium Chloride 10 ml 02/16/20 20:04 Sodium Chloride 0.9% 10 Ml Flush Syringe IV PRN PRN LINE FLUSH
--- NOTE | 2020-02-19 20:17 | Progress Note ---
Assessment and Plan - Patient Problems (1) ESRD needing dialysis Current Visit: Yes Status: Acute Plan to address problem: Nephrology team consulted in ED, strict I's/O, avoid nephrotoxic agents, dialysis as per renal team, vascular surgery team consulted for dialysis catheter placement. (2) Hypertension Current Visit: Yes Status: Chronic Qualifiers: Hypertension type: essential hypertension Qualified Code(s): I10 - Essent ial (primary) hypertension Plan to address problem: Monitor blood pressure every shift, continue medical management. (3) Diabetes Current Visit: Yes Status: Chronic Qualifiers: Chronic kidney disease stage: on chronic dialysis Plan to address problem: Consistent carbohydrate diet, sliding scale insulin, Accu-Chek, hypoglycemia protocol. (4) GERD (gastroesophageal reflux disease) Current Visit: Yes Status: Acute Qualifiers: Esophagitis presence: without esophagitis Qualified Code(s): K21.9 - Gastro-esophageal reflux disease without esophagitis Plan to address problem: PPI therapy, supportive care (5) Osteoarthritis Current Visit: Yes Status: Acute Qualifiers: Laterality: bilateral Plan to address problem: Pain control, supportive care. (6) DVT prophylaxis Current Visit: Yes Status: Acute Plan to address problem: SCD to bilateral lower extremities while in bed, patient is ambulatory. (7) Advance care planning Current Visit: Yes Status: Acute Plan to address problem: Disease education conducted, patient is full code, care plan discussed, prognosis discussed, patient knowledges understanding and agreement with care plan, +30 minutes. History Interval history: 74 YO Female HD #4 with ESRD requiring serial dialysis, HTN, DM, GERD, OA, requiring serial dialysis sessions. Patient resting comfortably. Patient acknowledges continuing to feel weak and having nausea. No reported nursing events. Patient denies pain. Case management consulted for discharge planning and assistance with outpatient dialysis. Hospitalist Physical - Constitutional Vitals: Temp Pulse Resp BP Pulse Ox 97.9 F 64 19 112/47 99 02/19/20 16:30 02/19/20 16:30 02/19/20 16:30 02/19/20 16:30 02/19/20 16:30 General appearance: Present: mild distress - EENT Eyes: Present: PERRL, EOM intact ENT: hearing intact - Neck Neck: Present: supple - Respiratory Respiratory: bilateral: CTA - Cardiovascular Rhythm: regular Heart Sounds: Present: S1 & S2 - Extremities Extremities: no ischemia Peripheral Pulses: within normal limits - Abdominal General gastrointestinal: soft, non-tender, non-distended - Integumentary Integumentary: Present: clear, dry - Psychiatric Psychiatric: appropriate mood/affect, cooperative - Neurologic Neurologic: CNII-XII intact HEART Score - HEART Score Troponin: Troponin T < 0.010 ng/mL (0.00-0.029) 02/16/20 16:51 Results - Labs CBC & Chem 7: 02/16/20 16:51 02/16/20 20:13 Labs: Laboratory Last Values WBC 7.0 K/mm3 (4.5-11.0) 02/16/20 16:51 RBC 4.15 M/mm3 (3.65-5.03) 02/16/20 16:51 Hgb 11.8 gm/dl (10.1-14.3) 02/16/20 16:51 Hct 35.1 % (30.3-42.9) 02/16/20 16:51 MCV 85 fl (79-97) 02/16/20 16:51 MCH 28 pg (28-32) 02/16/20 16:51 MCHC 34 % (30-34) 02/16/20 16:51 RDW 15.0 % (13.2-15.2) 02/16/20 16:51 Plt Count 249 K/mm3 (140-440) 02/16/20 16:51 Lymph % (Auto) 17.7 % (13.4-35.0) 02/16/20 16:51 [place] % (Auto) 10.3 % (0.0-7.3) H 02/16/20 16:51 Eos % (Auto) 4.9 % (0.0-4.3) H 02/16/20 16:51 Baso % (Auto) 0.8 % (0.0-1.8) 02/16/20 16:51 Lymph # (Auto) 1.2 K/mm3 (1.2-5.4) 02/16/20 16:51 [place] # (Auto) 0.7 K/mm3 (0.0-0.8) 02/16/20 16:51 Eos # (Auto) 0.3 K/mm3 (0.0-0.4) 02/16/20 16:51 Baso # (Auto) 0.1 K/mm3 (0.0-0.1) 02/16/20 16:51 Seg Neutrophils % 66.3 % (40.0-70.0) 02/16/20 16:51 Seg Neutrophils # 4.6 K/mm3 (1.8-7.7) 02/16/20 16:51 Sodium 143 mmol/L (137-145) 02/16/20 20:13 Potassium 4.9 mmol/L (3.6-5.0) 02/16/20 20:13 Chloride 106.0 mmol/L (98-107) 02/16/20 20:13 Carbon Dioxide 23 mmol/L (22-30) 02/16/20 20:13 Anion Gap 19 mmol/L 02/16/20 20:13 BUN 79 mg/dL (7-17) H 02/16/20 20:13 Creatinine 4.5 mg/dL (0.6-1.2) H 02/16/20 20:13 Estimated GFR 12 ml/min 02/16/20 20:13 BUN/Creatinine Ratio 18 % 02/16/20 20:13 Glucose 94 mg/dL (65-100) 02/16/20 20:13 POC Glucose 90 mg/dL (70-105) 02/17/20 08:04 Calcium 9.5 mg/dL (8.4-10.2) 02/16/20 20:13 Total Bilirubin 0.60 mg/dL (0.1-1.2) 02/16/20 16:51 AST 19 units/L (5-40) 02/16/20 16:51 ALT 22 units/L (7-56) 02/16/20 16:51 Alkaline Phosphatase 85 units/L (35-129) 02/16/20 16:51 Troponin T < 0.010 ng/mL (0.00-0.029) 02/16/20 16:51 Total Protein 7.0 g/dL (6.3-8.2) 02/16/20 16:51 Albumin 4.0 g/dL (3.9-5) 02/16/20 16:51 Albumin/Globulin Ratio 1.3 % 02/16/20 16:51 Urine Color Yellow (Yellow) 02/16/20 18:27 Urine Turbidity Clear (Clear) 02/16/20 18:27 Urine pH 5.0 (5.0-7.0) 02/16/20 18: Ur Specific [place] 1.011 (1.003-1.030) 02/16/20 18: Urine Protein <15 mg/dl mg/dL (Negative) 02/16/20 18: Urine Glucose (UA) Neg mg/dL (Negative) 02/16/20 18: Urine Ketones Neg mg/dL (Negative) 02/16/20 18: Urine Blood Neg (Negative) 02/16/20 18: Urine Nitrite Neg (Negative) 02/16/20 18: Urine Bilirubin Neg (Negative) 02/16/20 18: Urine Urobilinogen < 2.0 mg/dL (<2.0) 02/16/20 18: Ur Leukocyte Esterase Tr (Negative) 02/16/20 18: Urine WBC (Auto) 2.0 /HPF (0.0-6.0) 02/16/20 18: Urine RBC (Auto) 5.0 /HPF (0.0-6.0) 02/16/20 18: U Epithel Cells (Auto) 2.0 /HPF (0-13.0) 02/16/20 18: Urine Mucus Few /HPF 02/16/20 18: Hepatitis A IgM Ab Non-reactive (NonReactive) 02/16/20 19:45 Hep Bs Antigen Non-reactive (Negative) 02/16/20 19:45 Hep B Core IgM Ab Non-reactive (NonReactive) 02/16/20 19:45 Hepatitis C Antibody Non-reactive (NonReactive) 02/16/20 19:45 [place]/IV: Voiding Method Toilet IV Catheter Type [Left Upper INT / Saline Lock arm] IV Catheter Type [Right Hand] Peripheral IV Active Medications - Current Medications Current Medications: Generic Name Dose Route Start Last Admin Trade Name Freq PRN Reason Stop Dose Admin Acetaminophen 650 mg 02/16/20 20:04 Acetaminophen 325 Mg Tab PO Q4H PRN Pain MILD(1-3)/Fever >100.5/LESLIE Albuterol 2.5 mg 02/16/20 20:04 Albuterol 2.5 Mg/3 Ml Nebu IH Q4HRT PRN Shortness Of Breath Amlodipine Besylate 5 mg 02/17/20 10:00 02/19/20 10:02 Amlodipine 5 Mg Tab PO 5 mg DAILY RUSSELL Administration Atorvastatin Calcium 20 mg 02/16/20 22:00 02/18/20 21:54 Atorvastatin 20 Mg Tab PO 20 mg QHS RUSSELL Administration Furosemide 40 mg 02/16/20 20:06 Furosemide 40 Mg Tab PO QDAY PRN Edema Sodium Chloride 100 mls @ 999 mls/hr 02/17/20 08:49 Nacl 0.9% IV DERRELL PRN Hypotension Lisinopril 40 mg 02/17/20 10:00 02/19/20 10:03 Lisinopril 40 Mg Tab PO 40 mg DAILY RUSSELL Administration Miscellaneous Medication 40 mg 02/17/20 10:00 Febuxostat [Uloric] PO DAILY [facility] Miscellaneous Medication 5 gm 02/17/20 10:00 Sodium Zirconium Cyclosilicate [Lokelma] PO DAILY [facility] Ondansetron HCl 4 mg 02/16/20 20:04 02/19/20 04:10 Ondansetron 4 Mg/2 Ml Inj IV 4 mg Q8H PRN Administration Nausea And Vomiting Sodium Chloride 10 ml 02/16/20 22:00 02/19/20 10:04 Sodium Chloride 0.9% 10 Ml Flush Syringe IV 10 ml BID RUSSELL Administration Sodium Chloride 10 ml 02/16/20 20:04 Sodium Chloride 0.9% 10 Ml Flush Syringe IV PRN PRN LINE FLUSH
[2020-02-20] MEDS: ACETAMINOPHEN 325 MG TAB PO PRN (05:16)
--- NOTE | 2020-02-20 09:46 | Progress Note ---
Assessment and Plan - Patient Problems (1) CKD (chronic kidney disease) stage V requiring chronic dialysis Current Visit: Yes Status: Chronic Plan to address problem: Patient initiated on dialysis and so far tolerating her treatments. Placed on a TTS schedule. Arrange outpatient dialysis at [facility]. Patient would like to continue treatment by our group for her end-stage renal disease and of the clinics we go to, she thinks this would be most convenient for her to go to. Will discuss with patient's at her request (2) Hypertensive chronic kidney disease with stage 5 chronic kidney disease or end stage renal disease Current Visit: Yes Status: Acute Plan to address problem: Follow-up blood pressure on current medications (3) Type 2 diabetes mellitus with diabetic chronic kidney disease Current Visit: Yes Status: Acute Plan to address problem: Blood sugar management by primary attending (4) GERD (gastroesophageal reflux disease) Current Visit: Yes Status: Acute Qualifiers: Esophagitis presence: without esophagitis Qualified Code(s): K21.9 - Gastro-esophageal reflux disease without esophagitis Plan to address problem: Continue medications (5) Pain in foot Current Visit: Yes Status: Acute Plan to address problem: Give a dose of colchicine and see if she improves. Subjective Date of service: 02/20/20 Principal diagnosis: ESRD Interval history: Patient seen sitting in chair. She complains of pain in her right foot. She thinks she has a gout flareup. Objective - Exam Narrative Exam: Elderly -Hung[place] female sitting in chair in no acute distress HEENT: NCAT, pink oral mucous membrane Neck: Supple, no venous distention CVS: S1S2 RRR with no murmur, rub or gallop Chest: Clear to auscultation Abdomen: Protuberant, soft, nontender, no organomegaly, bowel sounds are present Extremities: No edema, tenderness lateral aspect of the right foot. No erythema or swelling Neuro: Awake, alert no focal deficits - Vital Signs Vital signs: Vital Signs - 12hr 02/19/20 02/20/20 22:48 05:06 Temperature 97.4 F L 97.4 F L Pulse Rate 65 65 Respiratory 16 18 Rate Blood Pressure 111/54 131/58 O2 Sat by Pulse 97 98 Oximetry - Lab 02/16/20 16:51 02/16/20 20:13 Most recent lab results Calcium 9.5 mg/dL (8.4-10.2) 02/16/20 20:13 Medications & Allergies - Medications Allergies/Adverse Reactions: Allergies Penicillins Allergy (Verified 02/16/20 15:31) Hives Home Medications: Home Medications Medication Instructions Recorded Confirmed Last Taken Type Benazepril HCl [Lotensin] 40 mg PO DAILY 02/16/20 02/16/20 Unknown History Cholecalciferol (Vitamin D3) 25 mcg PO DAILY 02/16/20 02/16/20 Unknown History [Vitamin D3] Colchicine 0.6 mg PO DAILY 02/16/20 02/16/20 Unknown History Febuxostat [Uloric] 40 mg PO DAILY 02/16/20 02/16/20 Unknown History Rosuvastatin Calcium [Crestor] 10 mg PO DAILY 02/16/20 02/16/20 Unknown History amLODIPine [Norvasc] 5 mg PO DAILY 02/16/20 02/16/20 Unknown History glipiZIDE [Glucotrol] 2.5 mg PO BID 02/16/20 02/16/20 Unknown History Active Medications: Generic Name Dose Route Start Last Admin Trade Name Freq PRN Reason Stop Dose Admin Acetaminophen 650 mg 02/16/20 20:04 02/20/20 05:16 Acetaminophen 325 Mg Tab PO 650 mg Q4H PRN Administration Pain MILD(1-3)/Fever >100.5/LESLIE Albuterol 2.5 mg 02/16/20 20:04 Albuterol 2.5 Mg/3 Ml Nebu IH Q4HRT PRN Shortness Of Breath Amlodipine Besylate 5 mg 02/17/20 10:00 02/19/20 10:02 Amlodipine 5 Mg Tab PO 5 mg DAILY RUSSELL Administration Atorvastatin Calcium 20 mg 02/16/20 22:00 02/19/20 21:20 Atorvastatin 20 Mg Tab PO 20 mg QHS RUSSELL Administration Furosemide 40 mg 02/16/20 20:06 Furosemide 40 Mg Tab PO QDAY PRN Edema Sodium Chloride 100 mls @ 999 mls/hr 02/17/20 08:49 Nacl 0.9% IV DERRELL PRN Hypotension Lisinopril 40 mg 02/17/20 10:00 02/19/20 10:03 Lisinopril 40 Mg Tab PO 40 mg DAILY RUSSELL Administration Miscellaneous Medication 40 mg 02/17/20 10:00 Febuxostat [Uloric] PO DAILY RUSSELL Miscellaneous Medication 5 gm 02/17/20 10:00 Sodium Zirconium Cyclosilicate [Lokelma] PO DAILY RUSSELL Ondansetron HCl 4 mg 02/16/20 20:04 02/19/20 04:10 Ondansetron 4 Mg/2 Ml Inj IV 4 mg Q8H PRN Administration Nausea And Vomiting Sodium Chloride 10 ml 02/16/20 22:00 02/19/20 21:24 Sodium Chloride 0.9% 10 Ml Flush Syringe IV 10 ml BID RUSSELL Administration Sodium Chloride 10 ml 02/16/20 20:04 Sodium Chloride 0.9% 10 Ml Flush Syringe IV PRN PRN LINE FLUSH
[2020-02-20] MEDS: LISINOPRIL 40 MG TAB PO SCH (10:00)
[2020-02-20] MEDS: amLODIPine 5 MG TAB PO SCH (10:00)
--- NOTE | 2020-02-20 12:48 | Progress Note ---
Assessment and Plan - Patient Problems (1) ESRD needing dialysis Current Visit: Yes Status: Acute Plan to address problem: Nephrology team consulted in ED, strict I's/O, avoid nephrotoxic agents, dialysis as per renal team, vascular surgery team consulted for dialysis catheter placement. (2) Hypertension Current Visit: Yes Status: Chronic Qualifiers: Hypertension type: essential hypertension Qualified Code(s): I10 - Essent ial (primary) hypertension Plan to address problem: Monitor blood pressure every shift, continue medical management. (3) Diabetes Current Visit: Yes Status: Chronic Qualifiers: Chronic kidney disease stage: on chronic dialysis Plan to address problem: Consistent carbohydrate diet, sliding scale insulin, Accu-Chek, hypoglycemia protocol. (4) GERD (gastroesophageal reflux disease) Current Visit: Yes Status: Acute Qualifiers: Esophagitis presence: without esophagitis Qualified Code(s): K21.9 - Gastro-esophageal reflux disease without esophagitis Plan to address problem: PPI therapy, supportive care (5) Osteoarthritis Current Visit: Yes Status: Acute Qualifiers: Laterality: bilateral Plan to address problem: Pain control, supportive care. (6) DVT prophylaxis Current Visit: Yes Status: Acute Plan to address problem: SCD to bilateral lower extremities while in bed, patient is ambulatory. (7) Advance care planning Current Visit: Yes Status: Acute Plan to address problem: Disease education conducted, patient is full code, care plan discussed, prognosis discussed, patient knowledges understanding and agreement with care plan, +30 minutes. History Interval history: 74 YO Female HD #5 with ESRD requiring serial dialysis, HTN, DM, GERD, OA, requiring serial dialysis sessions. Patient resting comfortably. Patient acknowledges continuing to feel weak and having nausea. No reported nursing events. Patient denies pain. Case management consulted for discharge planning and assistance with outpatient dialysis. Coronavirus PCR ordered today. Hospitalist Physical - Constitutional Vitals: Temp Pulse Resp BP Pulse Ox 97.4 F L 65 18 131/58 98 02/20/20 05:06 02/20/20 05:06 02/20/20 05:06 02/20/20 05:06 02/20/20 05:06 General appearance: Present: mild distress - EENT Eyes: Present: PERRL, EOM intact ENT: hearing intact - Neck Neck: Present: supple - Respiratory Respiratory: bilateral: CTA - Cardiovascular Rhythm: regular Heart Sounds: Present: S1 & S2 - Extremities Extremities: no ischemia Peripheral Pulses: within normal limits - Abdominal General gastrointestinal: soft, non-tender, non-distended - Integumentary Integumentary: Present: clear, warm, dry - Psychiatric Psychiatric: appropriate mood/affect, cooperative - Neurologic Neurologic: CNII-XII intact HEART Score - HEART Score Troponin: Troponin T < 0.010 ng/mL (0.00-0.029) 02/16/20 16:51 Results - Labs CBC & Chem 7: 02/16/20 16:51 02/16/20 20:13 Labs: Laboratory Last Values WBC 7.0 K/mm3 (4.5-11.0) 02/16/20 16:51 RBC 4.15 M/mm3 (3.65-5.03) 02/16/20 16:51 Hgb 11.8 gm/dl (10.1-14.3) 02/16/20 16:51 Hct 35.1 % (30.3-42.9) 02/16/20 16:51 MCV 85 fl (79-97) 02/16/20 16:51 MCH 28 pg (28-32) 02/16/20 16:51 MCHC 34 % (30-34) 02/16/20 16:51 RDW 15.0 % (13.2-15.2) 02/16/20 16:51 Plt Count 249 K/mm3 (140-440) 02/16/20 16:51 Lymph % (Auto) 17.7 % (13.4-35.0) 02/16/20 16:51 [place] % (Auto) 10.3 % (0.0-7.3) H 02/16/20 16:51 Eos % (Auto) 4.9 % (0.0-4.3) H 02/16/20 16:51 Baso % (Auto) 0.8 % (0.0-1.8) 02/16/20 16:51 Lymph # (Auto) 1.2 K/mm3 (1.2-5.4) 02/16/20 16:51 [place] # (Auto) 0.7 K/mm3 (0.0-0.8) 02/16/20 16:51 Eos # (Auto) 0.3 K/mm3 (0.0-0.4) 02/16/20 16:51 Baso # (Auto) 0.1 K/mm3 (0.0-0.1) 02/16/20 16:51 Seg Neutrophils % 66.3 % (40.0-70.0) 02/16/20 16:51 Seg Neutrophils # 4.6 K/mm3 (1.8-7.7) 02/16/20 16:51 Sodium 143 mmol/L (137-145) 02/16/20 20:13 Potassium 4.9 mmol/L (3.6-5.0) 02/16/20 20:13 Chloride 106.0 mmol/L (98-107) 02/16/20 20:13 Carbon Dioxide 23 mmol/L (22-30) 02/16/20 20:13 Anion Gap 19 mmol/L 02/16/20 20:13 BUN 79 mg/dL (7-17) H 02/16/20 20:13 Creatinine 4.5 mg/dL (0.6-1.2) H 02/16/20 20:13 Estimated GFR 12 ml/min 02/16/20 20:13 BUN/Creatinine Ratio 18 % 02/16/20 20:13 Glucose 94 mg/dL (65-100) 02/16/20 20:13 POC Glucose 90 mg/dL (70-105) 02/17/20 08:04 Calcium 9.5 mg/dL (8.4-10.2) 02/16/20 20:13 Total Bilirubin 0.60 mg/dL (0.1-1.2) 02/16/20 16:51 AST 19 units/L (5-40) 02/16/20 16:51 ALT 22 units/L (7-56) 02/16/20 16:51 Alkaline Phosphatase 85 units/L (35-129) 02/16/20 16:51 Troponin T < 0.010 ng/mL (0.00-0.029) 02/16/20 16:51 Total Protein 7.0 g/dL (6.3-8.2) 02/16/20 16:51 Albumin 4.0 g/dL (3.9-5) 02/16/20 16:51 Albumin/Globulin Ratio 1.3 % 02/16/20 16:51 Urine Color Yellow (Yellow) 02/16/20 18:27 Urine Turbidity Clear (Clear) 02/16/20 18: Urine pH 5.0 (5.0-7.0) 02/16/20 18: Ur Specific [place] 1.011 (1.003-1.030) 02/16/20 18: Urine Protein <15 mg/dl mg/dL (Negative) 02/16/20 18: Urine Glucose (UA) Neg mg/dL (Negative) 02/16/20 18: Urine Ketones Neg mg/dL (Negative) 02/16/20 18: Urine Blood Neg (Negative) 02/16/20 18: Urine Nitrite Neg (Negative) 02/16/20 18: Urine Bilirubin Neg (Negative) 02/16/20: Urine Urobilinogen < 2.0 mg/dL (<2.0) 02/16/20 18: Ur Leukocyte Esterase Tr (Negative) 02/16/20 18: Urine WBC (Auto) 2.0 /HPF (0.0-6.0) 02/16/20: Urine RBC (Auto) 5.0 /HPF (0.0-6.0) 02/16/20 18: U Epithel Cells (Auto) 2.0 /HPF (0-13.0) 02/16/20 18: Urine Mucus Few /HPF 02/16/20 18: Hepatitis A IgM Ab Non-reactive (NonReactive) 02/16/20 19:45 Hep Bs Antigen Non-reactive (Negative) 02/16/20 19:45 Hep B Core IgM Ab Non-reactive (NonReactive) 02/16/20 19:45 Hepatitis C Antibody Non-reactive (NonReactive) 02/16/20 19:45 [place]/IV: Voiding Method Incontinent IV Catheter Type [Left Upper INT / Saline Lock arm] IV Catheter Type [Right Hand] Peripheral IV Active Medications - Current Medications Current Medications: Generic Name Dose Route Start Last Admin Trade Name Freq PRN Reason Stop Dose Admin Acetaminophen 650 mg 02/16/20 20:04 02/20/20 05:16 Acetaminophen 325 Mg Tab PO 650 mg Q4H PRN Administration Pain MILD(1-3)/Fever >100.5/LESLIE Albuterol 2.5 mg 02/16/20 20:04 Albuterol 2.5 Mg/3 Ml Nebu IH Q4HRT PRN Shortness Of Breath Amlodipine Besylate 5 mg 02/17/20 10:00 02/20/20 10:00 Amlodipine 5 Mg Tab PO 5 mg DAILY RUSSELL Administration Atorvastatin Calcium 20 mg 02/16/20 22:00 02/19/20 21:20 Atorvastatin 20 Mg Tab PO 20 mg QHS RUSSELL Administration Furosemide 40 mg 02/16/20 20:06 Furosemide 40 Mg Tab PO QDAY PRN Edema Sodium Chloride 100 mls @ 999 mls/hr 02/17/20 08:49 Nacl 0.9% IV DERRELL PRN Hypotension Lisinopril 40 mg 02/17/20 10:00 02/20/20 10:00 Lisinopril 40 Mg Tab PO 40 mg DAILY RUSSELL Administration Miscellaneous Medication 40 mg 02/17/20 10:00 Febuxostat [Uloric] PO DAILY [facility] Miscellaneous Medication 5 gm 02/17/20 10:00 Sodium Zirconium Cyclosilicate [Lokelma] PO DAILY [facility] Ondansetron HCl 4 mg 02/16/20 20:04 02/19/20 04:10 Ondansetron 4 Mg/2 Ml Inj IV 4 mg Q8H PRN Administration Nausea And Vomiting Sodium Chloride 10 ml 02/16/20 22:00 02/20/20 10:00 Sodium Chloride 0.9% 10 Ml Flush Syringe IV 10 ml BID RUSSELL Administration Sodium Chloride 10 ml 02/16/20 20:04 Sodium Chloride 0.9% 10 Ml Flush Syringe IV PRN PRN LINE FLUSH
[2020-02-21] MEDS: INSULIN LISPRO 100 UNIT/ML VIAL 3 mL SUB-Q SCH ×4 (07:30→21:32)
--- NOTE | 2020-02-21 10:57 | Progress Note ---
Assessment and Plan - Patient Problems (1) CKD (chronic kidney disease) stage V requiring chronic dialysis Current Visit: Yes Status: Chronic Plan to address problem: Patient initiated on dialysis and so far tolerating her treatments. Placed on a TTS schedule. Arranging outpatient dialysis at [facility]. Patient would like to continue treatment by our group for her end-stage renal disease and of the clinics we go to, she thinks this would be most convenient for her to go to. I called patient's her request and discussed with him. He already knows the dialysis clinic and will be fine taking her there (2) Hypertensive chronic kidney disease with stage 5 chronic kidney disease or end stage renal disease Current Visit: Yes Status: Acute Plan to address problem: Follow-up blood pressure on current medications (3) Type 2 diabetes mellitus with diabetic chronic kidney disease Current Visit: Yes Status: Acute Plan to address problem: Blood sugar management by primary attending (4) GERD (gastroesophageal reflux disease) Current Visit: Yes Status: Acute Qualifiers: Esophagitis presence: without esophagitis Qualified Code(s): K21.9 - Gastro-esophageal reflux disease without esophagitis Plan to address problem: Continue medications Subjective Date of service: 02/21/20 Principal diagnosis: ESRD Interval history: Patient seen lying on bed on dialysis. She has no complaints. Shortness of breath improved. No chest pain. No nausea vomiting. Objective - Exam Narrative Exam: Elderly -Mosotho female sitting in chair in no acute distress HEENT: NCAT, pink oral mucous membrane Neck: Supple, no venous distention CVS: S1S2 RRR with no murmur, rub or gallop Chest: Clear to auscultation Abdomen: Protuberant, soft, nontender, no organomegaly, bowel sounds are present Extremities: No edema, tenderness lateral aspect of the right foot. No erythema or swelling Neuro: Awake, alert no focal deficits - Vital Signs Vital signs: Vital Signs - 12hr 02/21/20 02/21/20 04:12 09:16 Temperature 98.7 F Pulse Rate 67 Respiratory 18 Rate Blood Pressure 118/54 O2 Sat by Pulse 97 99 Oximetry - Lab 02/16/20 16:51 02/16/20 20:13 Most recent lab results Calcium 9.5 mg/dL (8.4-10.2) 02/16/20 20:13 Medications & Allergies - Medications Allergies/Adverse Reactions: Allergies Penicillins Allergy (Verified 02/16/20 15:31) Hives Home Medications: Home Medications Medication Instructions Recorded Confirmed Last Taken Type Benazepril HCl [Lotensin] 40 mg PO DAILY 02/16/20 02/16/20 Unknown History Cholecalciferol (Vitamin D3) 25 mcg PO DAILY 02/16/20 02/16/20 Unknown History [Vitamin D3] Colchicine 0.6 mg PO DAILY 02/16/20 02/16/20 Unknown History Febuxostat [Uloric] 40 mg PO DAILY 02/16/20 02/16/20 Unknown History Rosuvastatin Calcium [Crestor] 10 mg PO DAILY 02/16/20 02/16/20 Unknown History amLODIPine [Norvasc] 5 mg PO DAILY 02/16/20 02/16/20 Unknown History glipiZIDE [Glucotrol] 2.5 mg PO BID 02/16/20 02/16/20 Unknown History Active Medications: Generic Name Dose Route Start Last Admin Trade Name Freq PRN Reason Stop Dose Admin Acetaminophen 650 mg 02/16/20 20:04 02/20/20 05:16 Acetaminophen 325 Mg Tab PO 650 mg Q4H PRN Administration Pain MILD(1-3)/Fever >100.5/LESLIE Albuterol 2.5 mg 02/16/20 20:04 Albuterol 2.5 Mg/3 Ml Nebu IH Q4HRT PRN Shortness Of Breath Amlodipine Besylate 5 mg 02/17/20 10:00 02/20/20 10:00 Amlodipine 5 Mg Tab PO 5 mg DAILY RUSSELL Administration Atorvastatin Calcium 20 mg 02/16/20 22:00 02/20/20 22:02 Atorvastatin 20 Mg Tab PO 20 mg QHS RUSSELL Administration Furosemide 40 mg 02/16/20 20:06 Furosemide 40 Mg Tab PO QDAY PRN Edema Sodium Chloride 100 mls @ 999 mls/hr 02/17/20 08:49 Nacl 0.9% IV DERRELL PRN Hypotension Insulin Human Lispro 0 unit 02/21/20 07:30 02/21/20 07:30 Insulin Lispro 100 Unit/Ml Vial 3 Ml SUB-Q Not Given ACHS RUSSELL Protocol Lisinopril 40 mg 02/17/20 10:00 02/20/20 10:00 Lisinopril 40 Mg Tab PO 40 mg DAILY RUSSELL Administration Miscellaneous Medication 40 mg 02/17/20 10:00 Febuxostat [Uloric] PO DAILY [facility] Miscellaneous Medication 5 gm 02/17/20 10:00 Sodium Zirconium Cyclosilicate [Lokelma] PO DAILY [facility] Ondansetron HCl 4 mg 02/16/20 20:04 02/19/20 04:10 Ondansetron 4 Mg/2 Ml Inj IV 4 mg Q8H PRN Administration Nausea And Vomiting Sodium Chloride 10 ml 02/16/20 22:00 02/20/20 22:02 Sodium Chloride 0.9% 10 Ml Flush Syringe IV 10 ml BID RUSSELL Administration Sodium Chloride 10 ml 02/16/20 20:04 Sodium Chloride 0.9% 10 Ml Flush Syringe IV PRN PRN LINE FLUSH
[2020-02-21] MEDS: LISINOPRIL 40 MG TAB PO SCH (16:58)
[2020-02-21] MEDS: amLODIPine 5 MG TAB PO SCH (16:58)
--- NOTE | 2020-02-21 23:59 | Progress Note ---
Assessment and Plan Assessment and Plan - Patient Problems (1) ESRD needing dialysis Current Visit: Yes Status: Acute Plan to address problem: Nephrology team consulted in ED, strict I's/O, avoid nephrotoxic agents, dialysis as per renal team, vascular surgery team consulted for dialysis catheter placement. (2) Hypertension Current Visit: Yes Status: Chronic Qualifiers: Hypertension type: essential hypertension Qualified Code(s): I10 - Essential (primary) hypertension Plan to address problem: Monitor blood pressure every shift, continue medical management. (3) Diabetes Current Visit: Yes Status: Chronic Qualifiers: Chronic kidney disease stage: on chronic dialysis Plan to address problem: Consistent carbohydrate diet, sliding scale insulin, Accu-Chek, hypoglycemia protocol. (4) GERD (gastroesophageal reflux disease) Current Visit: Yes Status: Acute Qualifiers: Esophagitis presence: without esophagitis Qualified Code(s): K21.9 - Gastro-esophageal reflux disease without esophagitis Plan to address problem: PPI therapy, supportive care (5) Osteoarthritis Current Visit: Yes Status: Acute Qualifiers: Laterality: bilateral Plan to address problem: Pain control, supportive care. (6) DVT prophylaxis Current Visit: Yes Status: Acute Plan to address problem: SCD to bilateral lower extremities while in bed, patient is ambulatory. (7) Advance care planning Current Visit: Yes Status: Acute Plan to address problem: Disease education conducted, patient is full code, care plan discussed, prognosis discussed, patient knowledges understanding and agreement with care plan, +30 minutes. Subjective Date of service: 02/21/20 Principal diagnosis: ESRD Interval history: History Interval history: 74 YO Female HD #5 with ESRD requiring serial dialysis, HTN, DM, GERD, OA, requiring serial dialysis sessions. Patient resting comfortably. Patient acknowledges continuing to feel weak and having nausea. No reported nursing events. Patient denies pain. Case management consulted for discharge planning and assistance with outpatient dialysis. Coronavirus PCR pending Patient doing well otherwise Objective - Constitutional Vitals: Vital Signs - 12hr 02/21/20 02/21/20 02/21/20 12:00 12:15 12:30 Temperature Pulse Rate 65 66 65 Respiratory Rate Blood Pressure 130/58 126/56 130/59 O2 Sat by Pulse Oximetry 02/21/20 02/21/20 02/21/20 12:45 13:00 13:10 Temperature 97.2 F L Pulse Rate 62 61 70 Respiratory 20 Rate Blood Pressure 130/57 122/55 131/60 O2 Sat by Pulse Oximetry 02/21/20 02/21/20 16:31 21:29 Temperature 97.0 F L 97.8 F Pulse Rate 74 72 Respiratory 20 18 Rate Blood Pressure 139/57 142/60 O2 Sat by Pulse 100 98 Oximetry General appearance: Present: no acute distress, well-nourished - EENT Eyes: PERRL, EOM intact ENT: hearing intact, clear oral mucosa Ears: bilateral: normal - Neck Neck: supple, normal ROM - Respiratory Respiratory effort: normal Respiratory: bilateral: CTA - Breasts Breasts: normal - Cardiovascular Heart rate: 78 Rhythm: regular Heart Sounds: Present: S1 & S2. Absent: gallop, rub Extremities: pulses intact, No edema, normal color, Full ROM - Gastrointestinal General gastrointestinal: Present: soft, non-tender, non-distended, normal bowel sounds - Genitourinary Female genitourinary: normal - Integumentary Integumentary: clear, warm, dry - Musculoskeletal Musculoskeletal: 1, strength equal bilaterally - Neurologic Neurologic: moves all extremities - Psychiatric Psychiatric: memory intact, appropriate mood/affect, intact judgment & insight - Labs CBC & Chem 7: 02/16/20 16:51 02/16/20 20:13 HEART Score - HEART Score Troponin: Troponin T < 0.010 ng/mL (0.00-0.029) 02/16/20 16:51
[2020-02-22] MEDS: INSULIN LISPRO 100 UNIT/ML VIAL 3 mL SUB-Q SCH ×3 (08:40→18:08)
[2020-02-22] MEDS: LISINOPRIL 40 MG TAB PO SCH (10:33)
[2020-02-22] MEDS: amLODIPine 5 MG TAB PO SCH (10:33)
--- NOTE | 2020-02-22 10:52 | Progress Note ---
Assessment and Plan - Patient Problems (1) CKD (chronic kidney disease) stage V requiring chronic dialysis Current Visit: Yes Status: Chronic Plan to address problem: Patient initiated on dialysis and so far tolerating her treatments. Placed on a TTS schedule at 5:30 AM. Outpatient dialysis has been arranged at [facility]. Patient is ready for discharge from renal perspective (2) Hypertensive chronic kidney disease with stage 5 chronic kidney disease or end stage renal disease Current Visit: Yes Status: Acute Plan to address problem: Follow-up blood pressure on current medications (3) Type 2 diabetes mellitus with diabetic chronic kidney disease Current Visit: Yes Status: Acute Plan to address problem: Blood sugar management by primary attending (4) GERD (gastroesophageal reflux disease) Current Visit: Yes Status: Acute Qualifiers: Esophagitis presence: without esophagitis Qualified Code(s): K21.9 - Gastro-esophageal reflux disease without esophagitis Plan to address problem: Continue medications Subjective Date of service: 02/22/20 Principal diagnosis: ESRD Interval history: Patient seen lying on bed on dialysis. She has no complaints. She wants to go home. No chest pain. No nausea vomiting. Objective - Exam Narrative Exam: Elderly -Cymraes female sitting in chair in no acute distress HEENT: NCAT, pink oral mucous membrane Neck: Supple, no venous distention CVS: S1S2 RRR with no murmur, rub or gallop Chest: Clear to auscultation Abdomen: Protuberant, soft, nontender, no organomegaly, bowel sounds are present Extremities: No edema, No erythema or swelling Neuro: Awake, alert no focal deficits - Vital Signs Vital signs: Vital Signs - 12hr 02/22/20 02/22/20 04:15 10:33 Temperature 98.0 F Pulse Rate 66 82 Respiratory 18 Rate Blood Pressure 118/54 117/52 O2 Sat by Pulse 98 Oximetry - Lab 02/16/20 16:51 02/16/20 20:13 Most recent lab results Calcium 9.5 mg/dL (8.4-10.2) 02/16/20 20:13 Medications & Allergies - Medications Allergies/Adverse Reactions: Allergies Penicillins Allergy (Verified 02/16/20 15:31) Hives Home Medications: Home Medications Medication Instructions Recorded Confirmed Last Taken Type Benazepril HCl [Lotensin] 40 mg PO DAILY 02/16/20 02/16/20 Unknown History Cholecalciferol (Vitamin D3) 25 mcg PO DAILY 02/16/20 02/16/20 Unknown History [Vitamin D3] Colchicine 0.6 mg PO DAILY 02/16/20 02/16/20 Unknown History Febuxostat [Uloric] 40 mg PO DAILY 02/16/20 02/16/20 Unknown History Rosuvastatin Calcium [Crestor] 10 mg PO DAILY 02/16/20 02/16/20 Unknown History amLODIPine [Norvasc] 5 mg PO DAILY 02/16/20 02/16/20 Unknown History glipiZIDE [Glucotrol] 2.5 mg PO BID 02/16/20 02/16/20 Unknown History Active Medications: Generic Name Dose Route Start Last Admin Trade Name Freq PRN Reason Stop Dose Admin Acetaminophen 650 mg 02/16/20 20:04 02/20/20 05:16 Acetaminophen 325 Mg Tab PO 650 mg Q4H PRN Administration Pain MILD(1-3)/Fever >100.5/LESLIE Albuterol 2.5 mg 02/16/20 20:04 Albuterol 2.5 Mg/3 Ml Nebu IH Q4HRT PRN Shortness Of Breath Amlodipine Besylate 5 mg 02/17/20 10:00 02/22/20 10:33 Amlodipine 5 Mg Tab PO 5 mg DAILY RUSSELL Administration Atorvastatin Calcium 20 mg 02/16/20 22:00 02/21/20 21:32 Atorvastatin 20 Mg Tab PO 20 mg QHS RUSSELL Administration Furosemide 40 mg 02/16/20 20:06 Furosemide 40 Mg Tab PO QDAY PRN Edema Sodium Chloride 100 mls @ 999 mls/hr 02/17/20 08:49 Nacl 0.9% IV DERRELL PRN Hypotension Insulin Human Lispro 0 unit 02/21/20 07:30 02/22/20 08:40 Insulin Lispro 100 Unit/Ml Vial 3 Ml SUB-Q Not Given ACHS RUSSELL Protocol Lisinopril 40 mg 02/17/20 10:00 02/22/20 10:33 Lisinopril 40 Mg Tab PO 40 mg DAILY RUSSELL Administration Miscellaneous Medication 40 mg 02/17/20 10:00 Febuxostat [Uloric] PO DAILY [facility] Miscellaneous Medication 5 gm 02/17/20 10:00 Sodium Zirconium Cyclosilicate [Lokelma] PO DAILY RUSSELL Ondansetron HCl 4 mg 02/16/20 20:04 02/19/20 04:10 Ondansetron 4 Mg/2 Ml Inj IV 4 mg Q8H PRN Administration Nausea And Vomiting Sodium Chloride 10 ml 02/16/20 22:00 02/22/20 10:32 Sodium Chloride 0.9% 10 Ml Flush Syringe IV 10 ml BID RUSSELL Administration Sodium Chloride 10 ml 02/16/20 20:04 Sodium Chloride 0.9% 10 Ml Flush Syringe IV PRN PRN LINE FLUSH
--- NOTE | 2020-02-22 16:37 | Discharge Summary ---
Providers - Providers Date of Admission: 02/16/20 20:04 Date of discharge: 02/22/20 Attending physician: JANIE MCWILLIAMS 02/16/20 19:40 Consult to Physician [CONS] Urgent Comment: Dr. Nunez spoke with Dr. Varner @ 194 Consulting Provider: PHUONG ORTA Physician Instructions: Reason For Exam: needs dialysis access 02/16/20 20:01 Consult to Physician [CONS] Urgent Comment: Dr. Nunez spoke with Dr. Ahumada @ 1937 Consulting Provider: THERESA AHUMADA Physician Instructions: Reason For Exam: esrd needs dialysis 02/20/20 08:20 Consult to Case Management [CONS] Routine Services Needed at Discharge: Other Notified:: cm Comment:: Arrange Out Patient dialysis at [facility]. Additional Physician Instructions: Process already started as Out Patient. Just needs EKg, Chest Xray and hepatitis faxed Primary care physician: LINDA ORTA MD Hospitalization Condition: Stable Hospital course: 74 YO Female with HTN, DM, GERD, OA, ESRD pending first dialysis session, HLD, SCD Trait presents to ED for evaluation. Patient states that she has experienced weakness over the past 3 days with persistent symptoms over the same timeframe. Patient was seen and evaluated by her primary care physician and was instructed to seek further care. Patient was transported to [facility] via private vehicle for further care and evaluation. Patient seen and evaluated in the emergency department. Lab and imaging studies reviewed. Patient found to have end-stage renal disease in need of dialysis. Nephrology team consulted in ED. Vascular surgery team consulted in ED for placement of dialysis catheter. Patient placed in observation status and admitted to medical floor due to increased risk of worsening symptoms. Patient denies fever, chills, chest pain, palpitation, productive cough, skin rash, recent ill contacts, or known exposure to COVID-19. No prior admission for review. All medication listed at time of admission has been reconciled. Advanced care planning conducted in ED. Coronavirus PCR negative Patient doing well otherwise Has HD chair arranged Assessment and Plan - Patient Problems (1) ESRD needing dialysis Current Visit: Yes Status: Acute Plan to address problem: Follow-up with hemodialysis clinic for hemodialysis 3 times a week and also follow-up with loom fixer at least once a month to 8 weeks (2) Hypertension Current Visit: Yes Status: Chronic Qualifiers: Hypertension type: essential hypertension Qualified Code(s): I10 - Essential (primary) hypertension Plan to address problem: Blood pressure controlled (3) Diabetes Current Visit: Yes Status: Chronic Qualifiers: Chronic kidney disease stage: on chronic dialysis Plan to address problem: Diabetes reasonable (4) GERD (gastroesophageal reflux disease) Current Visit: Yes Status: Acute Qualifiers: Esophagitis presence: without esophagitis Qualified Code(s): K21.9 - Gastro-esophageal reflux disease without esophagitis Plan to address problem: PPI therapy, supportive care (5) Osteoarthritis Current Visit: Yes Status: Acute Qualifiers: Laterality: bilateral Plan to address problem: Pain control, supportive care. Disposition: - TO HOME OR SELFCARE Core Measure Documentation - Palliative Care Palliative Care/ Comfort Measures: Not Applicable - Core Measures Any of the following diagnoses?: none - VTE Discharge Requirements Deep Vein Thrombosis/Pulmonary Embolism Present on Admission: No Exam - Constitutional Vitals: Temp Pulse Resp BP Pulse Ox 98.3 F 92 H 20 129/60 100 02/22/20 14:09 02/22/20 14:09 02/22/20 14:09 02/22/20 14:09 02/22/20 14:09 General appearance: Present: no acute distress, well-nourished - EENT Eyes: Present: PERRL ENT: hearing intact, clear oral mucosa - Neck Neck: Present: supple, normal ROM - Respiratory Respiratory effort: normal Respiratory: bilateral: CTA - Cardiovascular Heart rate: 78 Rhythm: regular Heart Sounds: Present: S1 & S2. Absent: rub, click - Extremities Extremities: pulses symmetrical, No edema Peripheral Pulses: within normal limits - Abdominal General gastrointestinal: Present: soft, non-tender, non-distended, normal bowel sounds Female genitourinary: Present: normal - Integumentary Integumentary: Present: clear, warm, dry - Musculoskeletal Musculoskeletal: gait normal, strength equal bilaterally - Psychiatric Psychiatric: appropriate mood/affect, intact judgment & insight - Neurologic Neurologic: CNII-XII intact, moves all extremities Plan Activity: no restrictions Diet: renal Follow up with: LINDA ORTA MD [Primary Care Provider] - 7 Days THERESA AHUMADA MD [Staff Physician] - 7 Days
[2020-02-22 18:36] VITALS: BP 120/61
== END 2020-02-22 18:39 | disposition home or self-care (01) | DRG 682 ==
LOC: ED 14:08 → 3A 20:04 → OBSVTOIN 20:04 → 3A 21:37
PROVIDERS: ADMIT Internal Medicine; ATTEND Internal Medicine
PROC: 5A1D70Z Performance of Urinary Filtration, Intermittent, Less than 6 Hours Per Day (ICD-10-PCS; principal; 2020-02-17)
PROC: 5A1D70Z Performance of Urinary Filtration, Intermittent, Less than 6 Hours Per Day (ICD-10-PCS; 2020-02-18)
PROC: 5A1D70Z Performance of Urinary Filtration, Intermittent, Less than 6 Hours Per Day (ICD-10-PCS; 2020-02-21)
DX: I12.0 Hypertensive chronic kidney disease with stage 5 chronic kidney disease or end stage renal disease (principal); N18.6 End stage renal disease; E11.22 Type 2 diabetes mellitus with diabetic chronic kidney disease; K21.9 Gastro-esophageal reflux disease without esophagitis; E78.5 Hyperlipidemia, unspecified; M19.072 Primary osteoarthritis, left ankle and foot; M19.071 Primary osteoarthritis, right ankle and foot; D57.3 Sickle-cell trait; Z20.828 Contact with and (suspected) exposure to other viral communicable diseases; Z88.0 Allergy status to penicillin; Z79.84 Long term (current) use of oral hypoglycemic drugs; Z99.2 Dependence on renal dialysis
CPT/HCPCS: 36415; 71045; 80048; 80053; 80074; 81001; 82962; 84484; 85025; 93005; 94760; G0378; A9270-GY; J1815; J2405; U0003